=== PATIENT | female | born 1960 | race Caucasian/White ===

== ENCOUNTER 2020-04-13 07:59 | Emergency (ER) | payer BC, SELFPAY ==
--- NOTE | 2020-04-13 08:22 | ED.GENADULT ---
HPI - General Adult General Chief complaint: General Medical <Esdras Abdi NP - Last Filed: 04/13/20 16:45> Stated complaint: COVID TESTING [phone] <Esdras Abdi NP - Last Filed: 04/13/20 16:45> Time Seen by Provider: 04/13/20 08:21 <Esdras Abdi NP - Last Filed: 04/13/20 16:45> Source: patient <Esdras Abdi NP - Last Filed: 04/13/20 16:45> Mode of arrival: ambulatory <Esdras Abdi NP - Last Filed: 04/13/20 16:45> Limitations: no limitations <Esdras Abdi NP - Last Filed: 04/13/20 16:45> History of Present Illness HPI narrative: States she has some chills and body aches she works as a wood machinist and does have grand kids requesting COVID-19 test. <Esdras Abdi NP - Last Filed: 04/13/20 16:45> Onset (ago): day(s) <Esdras Abdi NP - Last Filed: 04/13/20 16:45> Related Data Allergies/adverse reactions: Allergies Allergy/AdvReac Type Severity Reaction Status Date / Time eggplant [EGGPLANT] Allergy Mild HIVES Unverified 03/28/20 16:29 acetaminophen [From PERCOCET] AdvReac Mild NAUSEA & Unverified 03/28/20 16:29 VOMITING oxycodone [From PERCOCET] AdvReac Mild NAUSEA & Unverified 03/28/20 16:29 VOMITING <Esdras Abdi NP - Last Filed: 04/13/20 16:45> Review of Systems Review of Systems: Constitutional: No Weight loss, No Fever, + Chills, No Night Sweats, No Fatigue, No Malaise ENT/Mouth: No Hearing loss, No Ear Pain, No Nasal Congestion, No Sinus Pain, No Hoarseness, No sore throat, No Rhinorrhea, No Swallowing Difficulty Eyes: No Eye Pain, No Swelling, No Redness, No Foreign Body, No Discharge, No Vision Changes Cardiovascular: No Chest Pain, No SOB, No Dyspnea on Exertion, No Orthopnea, No Edema, No Palpitations Respiratory: No Cough, No Sputum, No Wheezing, No Smoke Exposure, No Dyspnea Gastrointestinal: No Nausea, No Vomiting, No Diarrhea, No Constipation, No abdominal Pain, No Hematochezia, No Melena Genitourinary: no irregular bleeding, No Dysuria, No Urinary Frequency, No Hematuria, No Urinary Incontinence, No Urgency, No Flank Pain, No Urinary Flow Changes, No Hesitancy Musculoskeletal: No joint pain, No Myalgias, No Joint Swelling Skin: No Skin Lesions, No rash Neuro: No Weakness, No Numbness, No Paresthesias, No Loss of Consciousness, No Dizziness, No Headache Psych: No Anxiety/Panic, No Depression, No SI/HI/AH/VH, No Social Issues, Heme/Lymph: No Bruising, No Bleeding,No Lymphadenopathy Endocrine: No Polyuria, No Polydipsia, No Temperature Intolerance m <Esdras Abdi NP - Last Filed: 04/13/20 16:45> [facility] Past Medical History Medical History: Medical History No known health problems <Esdras Abdi NP - Last Filed: 04/13/20 16:45> Social History Social History: Social History Alcohol intake: never Smoked in Last 30 Days: No Use of substances other than those prescribed or required for medical reasons: No Advance Directives: No Advance Directives Information Provided: No <Esdras Abdi NP - Last Filed: 04/13/20 16:45> Physical Exam Vital Signs and I&O and Narrative: Vital Signs and I&O: Vital Signs Temp 98.2 F 04/13/20 08:53 Pulse 66 04/13/20 08:53 Resp 16 04/13/20 08:53 BP 147/86 H 04/13/20 08:53 Pulse Ox 99 04/13/20 08:53 Intake & Output 04/13/20 04/13/20 04/14/20 06:59 18:59 06:59 Weight 77.111 kg Body Mass Index 30.1 <Esdras Abdi NP - Last Filed: 04/13/20 16:45> Vital Signs and I&O: Vital Signs Temp 98.2 F 04/13/20 08:53 Pulse 66 04/13/20 08:53 Resp 16 04/13/20 08:53 BP 147/86 H 04/13/20 08:53 Pulse Ox 99 04/13/20 08:53 Intake & Output 04/13/20 04/13/20 04/14/20 06:59 18:59 06:59 Weight 77.111 kg Body Mass Index 30.1 <Alfredo Cruz DO - Last Filed: 04/13/20 22:17> Const: General: cooperative and healthy appearing; No acute distress or intoxicated appearing <[facility] [employer] TECHNICIAN - Last Filed: 04/13/20 16:45> Nutritional Appearance: average body habitus [facility] Last [facility]: 04/13/20 16:45> Orientation/consciousness: patient oriented x3 [facility] Last Filed: 04/13/20 16:45> HENMT: Head: Yes normal to inspection <[facility] - Last Filed: 04/13/20 16:45> Ears: hearing grossly normal bilaterally [facility] Last Filed: 04/13/20 16:45> Eyes: General: appearance normal, both eyes and all related structures <[facility] - Last Filed: 04/13/20 16:45> Visual Renee: normal visual renee by confrontation <[facility] - Last Filed: 04/13/20 16:45> Neck: Neck: Yes normal visual inspection, No positive Brudzinski's sign, No positive Kernig's sign and No tender <[facility] [employer] TECHNICIAN - Last Filed: 04/13/20 16:45> Thyroid: Thyroid normal <[facility] [employer] TECHNICIAN - Last Filed: 04/13/20 16:45> Chest: Chest palpation & inspection: normal inspection of the chest <[facility] DANNIELLE Abdi - Last Filed: 04/13/20 16:45> Resp: Effort & Inspection: normal respiratory effort <[facility] DANNIELLE Abdi - Last Filed: 04/13/20 16:45> Cardio: Jugular venous distension: no JVD <[facility] [employer] TECHNICIAN - Last Filed: 04/13/20 16:45> GI: Inspection: Yes normal to inspection <[facility] DANNIELLE Abdi - Last Filed: 04/13/20 16:45> Percussion: Yes normal to percussion <Esdras Abdi NP - Last Filed: 04/13/20 16:45> Auscultation: normal bowel sounds <Esdras Abdi NP - Last Filed: 04/13/20 16:45> : General: Yes no CVA tenderness <Esdras Abdi [employer] TECHNICIAN - Last Filed: 04/13/20 16:45> Back/Spine/Pelvis: Back: no CVA tenderness <[facility] [employer] TECHNICIAN - Last Filed: 04/13/20 16:45> Skin: General skin exam: no rashes or lesions noted <[facility] [employer] TECHNICIAN - Last Filed: 04/13/20 16:45> Neuro: General: patient oriented x3 <[facility] [employer] TECHNICIAN - Last Filed: 04/13/20 16:45> Extrem: General: Yes normal to inspection <[facility] [employer] TECHNICIAN - Last Filed: 04/13/20 16:45> Course Course Hospital Course: COVID-19 test done will discharge with precautions. [facility] guidance provided. Advised to follow institutional guidance. <Esdras Abdi [employer] TECHNICIAN - Last Filed: 04/13/20 16:45> Discharge Plan Discharge Clinical Impression: Acute viral syndrome <Esdras Abdi NP - Last Filed: 04/13/20 16:45> Patient Disposition: Home, Self-Care <Esdras Abdi NP - Last Filed: 04/13/20 16:45> Instructions: Viral Syndrome (ED) <Esdras Abdi NP - Last Filed: 04/13/20 16:45> Additional Instructions: Based on your symptoms and history we have sent a COVID-19. Although your RESULT IS PENDING at this time. RESULTS should return within 72 hours. At this time you will be contacted with either NEGATIVE OR POSITIVE results. -Please wait until we contact you for your results. At this time you will be okay for discharge. Please plan for self quarantine for up to 14 days. Do not expose yourself to others. You may not go to work. If testing does come back negative you may return to activities as long as you are no longer having any symptoms for at least 3 days. Please continue to follow cold instructions and wash your hands frequently. You may take Tylenol as directed on the bottle for pain or fever. Patient seen in the emergency department on 01/05/2020 and should be excused from work until negative test results AND until 72 hours without any symptoms AND at least 10 days have passed since symptoms first appeared or since last exposure to COVID-19 positive patient CDC Guidelines for home isolation: - Stay away from others - WEAR A MASK if you are sick AND STAY HOME - Cover your mouth and nose with a tissue when you cough or sneeze. Dispose of tissues in a lined trash can and wash your hands immediately with soap and water for at least 20 seconds. If soap and water are not available, clean hands with alcohol-based hand backer up that contains at least 60% alcohol. - Clean your hands often with soap and water for at least 20 seconds - Avoid touching your eyes, nose and mouth with unwashed hands - Do not share dishes, drinking glasses, cups, eating utensils, towels, or bedding with other people in your home. After using these items, wash them thoroughly with soap and water or put in the director community health nursing. - Clean high-touch surfaces in your isolation area ( sick room and bathroom) every day; let a caregiver clean and disinfect high-touch surfaces in other areas of the home. Clean the area or item with soap and water or another detergent if it is dirty. Then, use a household disinfectant. - Limit contact with pets and animals: If you must care for a pet, wash your hands before and after interacting with them <Esdras Abdi NP - Last Filed: 04/13/20 16:45> Interventions: ED Discharge Assessment Last Done: 04/13/20 09:00 <Esdras Abdi NP - Last Filed: 04/13/20 16:45> Discharge Date/Time: 04/13/20 09:01 <Esdras Abdi NP - Last Filed: 04/13/20 16:45>
[2020-04-13 08:53] VITALS: BP 147/86; PULSE 66; RESP 16; TEMP 36.8; O2SAT 99; BMI 30.1
== END 2020-04-13 09:01 | disposition home or self-care (01) ==
LOC: HO.ED 08:36
PROVIDERS: Nurse Practitioner Primary Care; Emergency Provider Emergency Medicine; PCP Internal Medicine
DX: B34.9 Viral infection, unspecified (principal); Z20.828 Contact with and (suspected) exposure to other viral communicable diseases; R68.83 Chills (without fever)
CPT/HCPCS: 36415; 87635; 99283

== ENCOUNTER 2020-07-26 02:15 | Emergency (ER) | payer BC, SELFPAY ==
--- NOTE | 2020-07-26 02:23 | ECG_ITS ---
Test Reason : PALPITATIONS Blood Pressure : / mmHG Vent. Rate : 077 BPM Atrial Rate : 077 BPM P-R Int : 158 ms QRS Dur : 078 ms QT Int : 402 ms P-R-T Axes : 052 013 021 degrees QTc Int : 454 ms Normal sinus rhythm Normal ECG When compared to the previous EKG of No significant changes seen Referred By: Malini Arroyo Electronically Signed By:EFREM LR MD
[2020-07-26 02:33] VITALS: BP 159/84; PULSE 78; RESP 12; TEMP 37.2; O2SAT 99; BMI 30.1
[2020-07-26 03:06] LABS: MANUAL DIFF FLAG NO
[2020-07-26 03:07] LABS: Basophils Absolute Auto 0.1 X10*3/uL (0.0-0.2); Basophils Percent Auto 0.7 % (0-2); Eosinophils Absolute Auto 0.2 X10*3/uL (0.0-0.4); Eosinophils Percent Auto 3.6 % (0-4); Hematocrit 40.7 % (37-47); Hemoglobin 13.5 g/dl (12.0-16.0); Imm Gran Abs Auto 0.06 X10*3/uL (0.00-0.03); Imm Gran Pct Auto 0.9 % (0.0-0.4); Lymphocytes Absolute Auto 2.3 X10*3/uL (1.2-4.9); Lymphocytes Percent Auto 33.9 % (20-40); Mean Corpuscular HGB Conc 33.2 g/dl (31.0-35.0); Mean Corpuscular Hemoglobin 29.3 pg (27.0-33.0); Mean Corpuscular Volume 88.5 fL (80-98); Mean Platelet Volume 9.6 fL (9.4-12.3); Monocytes Absolute Auto 0.5 X10*3/uL (0.1-1.2); Monocytes Percent Auto 7.8 % (2-11); Neutrophils Absolute Auto 3.5 X10*3/uL (2.0-8.3); Neutrophils Percent Auto 53.1 % (45-73); Platelet Count 230 X10*3/uL (160-400); Red Cell Distribution Width 12.8 % (11.0-16.0); White Blood Count 6.7 X10*3/uL (4.8-10.8)
--- NOTE | 2020-07-26 03:32 | ED.ARRPALP ---
HPI - Arrhythmia/Palpitations General Chief Complaint: Arrhythmia/Palpitations Stated Complaint: PALPITATIONS Time Seen by Provider: 07/26/20 02:22 Source: patient Mode of arrival: ambulatory History of Present Illness HPI narrative: This is a 59-year-old female who states that she woke up from sleep and stated that her heart was racing, she took her heart rate and noted that it was 98. She states that she has been having these palpitation feelings for the past week and that on average they last approximately 1 hour and are not associated with chest pain but she starts feeling short of breath and anxious and states that she does suffer from anxiety. Otherwise, she denies any fevers, chills, GI symptoms, symptoms and states that all of her symptoms have resolved EN route to the hospital. Related Data Allergies Allergy/AdvReac Type Severity Reaction Status Date / Time eggplant [EGGPLANT] Allergy Mild HIVES Verified 07/26/20 02:39 acetaminophen [From PERCOCET] AdvReac Mild NAUSEA & Verified 07/26/20 02:39 VOMITING oxycodone [From PERCOCET] AdvReac Mild NAUSEA & Verified 07/26/20 02:39 VOMITING Review of Systems Review of Systems: Pertinent positives and negatives as stated in HPI 10 point review systems otherwise negative. PMFSH Past Medical History Source: nursing notes reviewed Medical History No known health problems Social History Social History Alcohol intake: never Smoking Status: Never smoker Use of substances other than those prescribed or required for medical reasons: No Advance Directives: No Physical Exam Vital Signs: Vital Signs: Last Vital Signs Temp 98.9 F 07/26/20 02:33 Pulse 78 07/26/20 02:33 Resp 12 07/26/20 02:33 BP 159/84 H 07/26/20 02:33 Pulse Ox 99 07/26/20 02:33 Body Mass Index 30.1 VITAL SIGNS: Reviewed. GENERAL: Well developed, well nourished, in no acute distress. NOSE: Nares patent bilateral OROPHARYNX: no oral lesions noted, posterior pharynx clear and non-erythematous without noted tonsillar enlargement/erythema/exudates NECK: Supple, no adenopathy LUNGS: Normal breath sounds. No adventitious sounds or accessory muscle use. SpO2<99> CARDIOVASCULAR: Regular rate and rhythm without noted murmurs, no JVD or lower extremity edema. ABDOMEN: Soft, non-tender, non-distended with bowel sounds. No rigidity. No guarding. No palpable masses or hernias noted MUSCULOSKELETAL: No tenderness, deformities, or effusions noted on gross inspection. EXTREMITIES: No cyanosis, clubbing or edema. SKIN: Inspection of the skin reveals no rashes NEUROLOGIC: Alert and oriented x 4. Course Course Course Narrative: This is a 59-year-old female with history and clinical presentation consistent with anxiety associated palpitations, but will rule out infectious/anemia/thyroid etiologies. All investigations were reviewed and there are no acute findings to suggest that infection, anemia, thyroid is contributing to patient's symptoms. In addition, there are no acute changes on EKG. All results and findings were discussed with the patient at bedside and she was strongly encouraged to follow-up with her primary care provider and discuss a possible Cardiology referral as appropriate. MDM - Arrhythmia/Palpitations Lab Data Result diagrams: 07/26/20 03:01 07/26/20 03:00 Labs: Lab Results 07/26/20 07/26/20 07/26/20 Range/Units 03:00 03:00 03:01 WBC 6.7 (4.8-10.8) X10*3/uL RBC 4.60 (4.20-5.50) X10*6/uL Hgb 13.5 (12.0-16.0) g/dl Hct 40.7 (37-47) % MCV 88.5 (80-98) fL MCH 29.3 (27.0-33.0) pg MCHC 33.2 (31.0-35.0) g/dl RDW 12.8 (11.0-16.0) % Plt Count 230 (160-400) X10*3/uL MPV 9.6 (9.4-12.3) fL Immature Gran % (Auto) 0.9 H (0.0-0.4) % Neut % (Auto) 53.1 (45-73) % Lymph % (Auto) 33.9 (20-40) % [place] % (Auto) 7.8 (2-11) % Eos % (Auto) 3.6 (0-4) % Baso % (Auto) 0.7 (0-2) % Lymph # (Auto) 2.3 (1.2-4.9) X10*3/uL [place] # (Auto) 0.5 (0.1-1.2) X10*3/uL Eos # (Auto) 0.2 (0.0-0.4) X10*3/uL Baso # (Auto) 0.1 (0.0-0.2) X10*3/uL Abs Immat Gran (auto) 0.06 H (0.00-0.03) X10*3/uL Absolute Neuts (auto) 3.5 (2.0-8.3) X10*3/uL Absolute Nucleated RBC 0.000 (0.0-0.012) X10*3/uL Nucleated RBC % (auto) 0.0 (0.0-0.2) /100WBC Sodium 141 (135-145) mmol/L Potassium 4.2 (3.3-5.1) mmol/l Chloride 107 (96-108) mmol/L Carbon Dioxide 26 (22-29) mmol/L Anion Gap 12 (12-20) BUN 23 H (9-16) mg/dL Creatinine 0.74 (0.5-1.4) mg/dL Estim Creat Clear Calc 78.5 Estimated GFR > 60 Random Glucose 108 (60-115) mg/dL Calcium 8.3 L (8.4-10.2) mg/dL Total Bilirubin 0.3 (0.0-1.0) mg/dL AST 13 (5-31) U/L ALT 11 (0-31) U/L Alkaline Phosphatase 102 (39-117) U/L Total Protein 5.9 L (6.5-8.0) g/dL Albumin 3.7 (3.5-5.0) g/dL TSH 3.81 (0.32-4.0) mIU/mL Urine Color Urine Appearance Urine pH (5.0-8.0) Ur Specific [place] (1.005-1.025) Urine Protein (NEG-TRACE) MG/DL Urine Glucose (UA) (NEG) MG/DL Urine Ketones (NEG) MG/DL Urine Blood (NEG) Urine Nitrite (NEG) Ur Leukocyte Esterase (NEG) 01/15/21 Range/Units 03:36 WBC (4.8-10.8) X10*3/uL RBC (4.20-5.50) X10*6/uL Hgb (12.0-16.0) g/dl Hct (37-47) % MCV (80-98) fL MCH (27.0-33.0) pg MCHC (31.0-35.0) g/dl RDW (11.0-16.0) % Plt Count (160-400) X10*3/uL MPV (9.4-12.3) fL Immature Gran % (Auto) (0.0-0.4) % Neut % (Auto) (45-73) % Lymph % (Auto) (20-40) % [place] % (Auto) (2-11) % Eos % (Auto) (0-4) % Baso % (Auto) (0-2) % Lymph # (Auto) (1.2-4.9) X10*3/uL [place] # (Auto) (0.1-1.2) X10*3/uL Eos # (Auto) (0.0-0.4) X10*3/uL Baso # (Auto) (0.0-0.2) X10*3/uL Abs Immat Gran (auto) (0.00-0.03) X10*3/uL Absolute Neuts (auto) (2.0-8.3) X10*3/uL Absolute Nucleated RBC (0.0-0.012) X10*3/uL Nucleated RBC % (auto) (0.0-0.2) /100WBC Sodium (135-145) mmol/L Potassium (3.3-5.1) mmol/l Chloride (96-108) mmol/L Carbon Dioxide (22-29) mmol/L Anion Gap (12-20) BUN (9-16) mg/dL Creatinine (0.5-1.4) mg/dL Estim Creat Clear Calc Estimated GFR Random Glucose (60-115) mg/dL Calcium (8.4-10.2) mg/dL Total Bilirubin (0.0-1.0) mg/dL AST (5-31) U/L ALT (0-31) U/L Alkaline Phosphatase (39-117) U/L Total Protein (6.5-8.0) g/dL Albumin (3.5-5.0) g/dL TSH (0.32-4.0) mIU/mL Urine Color YELLOW Urine Appearance CLEAR Urine pH 6.0 (5.0-8.0) Ur Specific [place] 1.025 (1.005-1.025) Urine Protein NEG (NEG-TRACE) MG/DL Urine Glucose (UA) NEG (NEG) MG/DL Urine Ketones NEG (NEG) MG/DL Urine Blood NEG (NEG) Urine Nitrite NEG (NEG) Ur Leukocyte Esterase NEG (NEG) ECG Data Interpretation: Normal sinus rhythm, HR-77, no evidence of acute ischemia, PA/QRS/QTC are within normal limits. Discharge Plan Discharge Clinical Impression: Palpitations, Anxiety Patient Disposition: Home, Self-Care Instructions: Heart Palpitations (ED), Anxiety (ED) Additional Instructions: 1. Resume all home medications as prescribed. 2. Please follow-up with your primary care provider to discuss the possibility of further evaluation of your palpitations with Cardiology. Please do not hesitate to return to the emergency department should you experience any worsening of your symptoms. Referrals: aKhlil Sharpe MD [Primary Care Provider] - 2 days (Re-evaluation outpatient management of palpitations with possible cardiology referral.)
[2020-07-26 03:41] LABS: Alanine Aminotransferase 11 U/L (0-31); Albumin Level 3.7 g/dL (3.5-5.0); Alkaline Phosphatase 102 U/L (39-117); Anion Gap 12 (12-20); Aspartate Amino Transferase 13 U/L (5-31); Bilirubin Total 0.3 mg/dL (0.0-1.0); Blood Urea Nitrogen 23 mg/dL (9-16); Calcium 8.3 mg/dL (8.4-10.2); Carbon Dioxide 26 mmol/L (22-29); Chloride 107 mmol/L (96-108); Creatinine Clr Calc Pharmacy 78.5; Estimated Glomerular Filt Rate > 60; Glucose Random 108 mg/dL (60-115); Potassium 4.2 mmol/l (3.3-5.1); Sodium 141 mmol/L (135-145); Total Protein 5.9 g/dL (6.5-8.0)
[2020-07-26 03:52] LABS: Glucose Urine UA NEG (NEG); Leukocyte Esterase Urine NEG (NEG); Nitrite Urine NEG (NEG); Specific Gravity - Urine 1.025 (1.005-1.025); Urine Blood NEG (NEG); Urine Ketones NEG (NEG); Urine Protein NEG (NEG-TRACE)
[2020-07-26 03:54] LABS: Color Urine YELLOW; UACC Culture Trigger NO
[2020-07-26 03:55] LABS: Appearance Urine CLEAR
[2020-07-26 03:55] LABS: TSH reflex Free T4 3.81 mIU/mL (0.32-4.0)
== END 2020-07-26 04:50 | disposition home or self-care (01) ==
PROVIDERS: Emergency Provider Student in an Organized Health Care Education/Training Program; PCP Internal Medicine
DX: R00.2 Palpitations (principal); F41.9 Anxiety disorder, unspecified
CPT/HCPCS: 36415; 80053; 81003; 84443; 85025; 93005; 99283; 99284

== ENCOUNTER 2020-09-27 12:30 | Emergency (ER) | payer BC, SELFPAY ==
--- NOTE | ~2020-09-27 | XR_ITS ---
EXAMINATION: XR CHEST CLINICAL INFORMATION: Headache and elevated blood pressure. COMPARISON: None TECHNIQUE: Frontal view of the chest was obtained. FINDINGS: No significant abnormality is noted involving the heart, lungs, mediastinum, bony thorax or soft tissues. XR/XR chest 1V IMPRESSION: Unremarkable chest examination.
--- NOTE | ~2020-09-27 | CT_ITS ---
EXAMINATION: CT ABDOMEN AND PELVIS WITHOUT CONTRAST CLINICAL INFORMATION: Intermittent left flank pain COMPARISON: None TECHNIQUE: Multidetector volumetric imaging was performed from the superior aspect of the liver through the pubic symphysis. Sagittal and coronal reformatted images were obtained on the technologist's workstation. This CT examination was performed using dose optimization techniques as appropriate, variously including the following: *Automated exposure control *Adjustment of mA and/or kV according to patient size (this includes techniques or standardized protocols for targeted exams where dose is matched to indication/reason for exam; i.e. extremities or head) *Use of iterative reconstruction technique DLP: 757 mGy-cm FINDINGS: LUNG BASES: The visualized lung bases are unremarkable. LIVER, GALLBLADDER, AND BILIARY TREE: The liver is normal in size, shape, and attenuation. No focal hepatic lesion or biliary ductal dilatation is present. The gallbladder is unremarkable with no evidence of radiopaque gallstones, gallbladder wall thickening, or obvious pericholecystic inflammatory changes. PANCREAS: Unremarkable. SPLEEN: Unremarkable. ADRENAL GLANDS: Unremarkable. KIDNEYS AND URETERS: The kidneys are normal in size, shape, and attenuation. Multiple cystic structures are present in the region of the renal pelvis, left significantly greater than the right. I suspect that these represent parapelvic cysts. No hydronephrosis, hydroureter, or calculi seen. No perinephric stranding. BLADDER: The bladder is nearly empty and demonstrates symmetric wall thickening. No calculi are seen. GASTROINTESTINAL TRACT: The small and large bowel are unremarkable. The appendix is unremarkable. ABDOMINAL WALL: No significant hernia is appreciated. LYMPH NODES: Normal. VASCULAR: Unremarkable. PELVIC VISCERA: Status post hysterectomy. An abnormal adnexal mass or free intraperitoneal fluid is not seen. OSSEOUS STRUCTURES: Unremarkable. Mild degenerative changes present in the lower thoracic spine. CT/CT abdomen pelvis wo con IMPRESSION: Probable bilateral parapelvic cysts. Left greater than right. This could be confirmed with CT urography, especially the patient continues to have continued left flank pain..
--- NOTE | ~2020-09-27 | CT_ITS ---
EXAMINATION: CT HEAD WITHOUT CONTRAST CLINICAL INFORMATION: Headache and elevated blood pressure. COMPARISON: None TECHNIQUE: Contiguous axial imaging was performed from the skull base to vertex without intravenous administration of contrast. This CT examination was performed using dose optimization techniques as appropriate, variously including the following: *Automated exposure control *Adjustment of mA and/or kV according to patient size (this includes techniques or standardized protocols for targeted exams where dose is matched to indication/reason for exam; i.e. extremities or head) *Use of iterative reconstruction technique DLP: 714 mGy-cm FINDINGS: There is no evidence of acute intracranial hemorrhage or territorial infarction. No abnormal mass effect or midline shift is seen. [place] to white matter differentiation is well preserved. No extra-axial fluid collections are identified. The ventricles are normal in size. There is no abnormal attenuation within the brain parenchyma. The osseous structures and soft tissues are normal. There is mild mucoperiosteal thickening involving bilateral maxillary sinuses. Mild degenerative changes right TM joints are noted. CT/CT head/brain wo con IMPRESSION: No acute intracranial process seen Chronic bilateral maxillary sinus inflammatory changes. Mild right TM joint arthritis.
[2020-09-27 12:42] VITALS: BP 181/92; PULSE 76; RESP 16; TEMP 36.1; O2SAT 100; BMI 31.5
[2020-09-27 14:51] LABS: COVID-19 Test Negative (Negative)
[2020-09-27 14:57] VITALS: BP 172/85; PULSE 80; RESP 16; O2SAT 98
--- NOTE | 2020-09-27 14:58 | PC.NURSE ---
BP remains elevated. Awaiting MD. COVID swab negative.
--- NOTE | 2020-09-27 15:13 | ECG_ITS ---
Test Reason : HEADACHE Blood Pressure : / mmHG Vent. Rate : 070 BPM Atrial Rate : 070 BPM P-R Int : 154 ms QRS Dur : 080 ms QT Int : 410 ms P-R-T Axes : 060 020 028 degrees QTc Int : 442 ms Normal sinus rhythm Normal ECG When compared with ECG of 26-JUL-2020 02:46, No significant change was found Referred By: Wendy Dawkins Electronically Signed By:EFREM LR MD
[2020-09-27 15:45] LABS: MANUAL DIFF FLAG NO
[2020-09-27] MEDS: 0.9 % Sodium Chloride 1,000 ML 999 ML IVCONT (15:46)
[2020-09-27 15:47] LABS: Basophils Absolute Auto 0.1 X10*3/uL (0.0-0.2); Basophils Percent Auto 0.6 % (0-2); Eosinophils Absolute Auto 0.1 X10*3/uL (0.0-0.4); Eosinophils Percent Auto 1.1 % (0-4); Hematocrit 46.5 % (37-47); Hemoglobin 15.6 g/dl (12.0-16.0); Imm Gran Abs Auto 0.04 X10*3/uL (0.00-0.03); Imm Gran Pct Auto 0.5 % (0.0-0.4); Lymphocytes Absolute Auto 1.4 X10*3/uL (1.2-4.9); Lymphocytes Percent Auto 15.6 % (20-40); Mean Corpuscular HGB Conc 33.5 g/dl (31.0-35.0); Mean Corpuscular Hemoglobin 29.3 pg (27.0-33.0); Mean Corpuscular Volume 87.2 fL (80-98); Mean Platelet Volume 9.6 fL (9.4-12.3); Monocytes Absolute Auto 0.4 X10*3/uL (0.1-1.2); Monocytes Percent Auto 4.6 % (2-11); Neutrophils Absolute Auto 6.8 X10*3/uL (2.0-8.3); Neutrophils Percent Auto 77.6 % (45-73); Platelet Count 249 X10*3/uL (160-400); Red Blood Count 5.33 X10*6/uL (4.20-5.50); White Blood Count 8.7 X10*3/uL (4.8-10.8)
[2020-09-27 15:53] LABS: Prothrombin Time 11.7 SEC (10.8-13.0)
[2020-09-27 15:55] LABS: Partial Thromboplastin Time 37.4 SEC (24.1-38.0)
[2020-09-27 16:00] VITALS: BP 164/87; PULSE 70; RESP 16; TEMP 36.6; O2SAT 99
[2020-09-27 16:09] LABS: Alanine Aminotransferase 11 U/L (0-31); Albumin Level 4.4 g/dL (3.5-5.0); Alkaline Phosphatase 112 U/L (39-117); Anion Gap 13 (12-20); Aspartate Amino Transferase 17 U/L (5-31); Bilirubin Direct 0.2 mg/dL (0.0-0.5); Bilirubin Total 0.6 mg/dL (0.0-1.0); Blood Urea Nitrogen 17 mg/dL (9-16); C Reactive Protein 0.31 mg/dL (< or = 0.50); Calcium 9.1 mg/dL (8.4-10.2); Carbon Dioxide 27 mmol/L (22-29); Chloride 105 mmol/L (96-108); Creatinine Clr Calc Pharmacy 78.3; Estimated Glomerular Filt Rate > 60; Glucose Random 98 mg/dL (60-115); Magnesium 2.1 mg/dL (1.6-2.6); Potassium 3.7 mmol/L (3.3-5.1); Sodium 141 mmol/L (135-145); Total Protein 6.9 g/dL (6.5-8.0)
[2020-09-27 16:13] LABS: B Type Natriuretic Peptide 29 pg/mL (<100); Troponin-I High Sensitivity 4.2 ng/L (<3.5-17.0)
--- NOTE | 2020-09-27 16:13 | ED_ITS ---
HPI - Headache General Chief Complaint: Headache Stated Complaint: headache, hbp Time Seen by Provider: 09/27/20 14:56 Source: patient Mode of arrival: ambulatory Limitations: no limitations History of Present Illness HPI Narrative: 60-year-old female with a past medical history of vertigo, anxiety, depression chronic neck pain that radiates from the back of her neck and causes her to have headaches who reports she does not have a past medical history of hypertension although in our system it reports that she does therefore unsure about this presenting to the ED with complaints of headache with elevated blood pressure at the frontal/temporal aspects of her head that has been intermittent over the past few years/months and feels similar to her prior headaches that arise from her chronic back pain. Reports that the headache completely resolved prior to arrival although returned when she arrived back at the emergency department. Reports that she was initially seen at an urgent care center prior to arrival for a COVID test due to she wanted to have acupuncture and therefore they requested and negative COVID test. Patient also reports for the past few days she has been having right-sided flank pain. She reports she is currently on antibiotics for an ingrown toenail she believes Keflex. She denies any dizziness, changes in vision, nasal congestion/runny nose, ear pain, nausea/vomiting, jaw pain, paresthesias, chest pain, shortness of breath, palpitations, cough, lower extremity edema, any symptoms, any back pain or any other symptoms complaints or concerns at this time. MD elicited complaint: headache Onset description: gradually Location: frontal and temporal Severity: moderate Quality & Timing: aching Exacerbating factors: none Relieving factors: nothing Context: other (Patient cannot recall) Associated symptoms: none Treatments prior to arrival: none Related Data Previous Rx's Medication Instructions Recorded levofloxacin 750 mg PO DAILY 7 Days #7 tab 09/27/20 lisinopril 10 mg PO DAILY #30 tab 09/27/20 Allergies Allergy/AdvReac Type Severity Reaction Status Date / Time eggplant [EGGPLANT] Allergy Mild HIVES Verified 07/26/20 02:39 oxycodone [From PERCOCET] AdvReac Mild NAUSEA & Verified 07/26/20 02:39 VOMITING Review of Systems Review of Systems: Constitutional : No changes in activity, No lethargy, No recent prior head injury, No agitation, No increased fussiness ENT/Mouth : No Ear Pain, No Nasal discharge/drainage Eyes: No Eye Pain, No Swelling, No Redness, No Foreign Body, No Vision Changes Cardiovascular : No Chest Pain, No SOB Respiratory : No Cough Gastrointestinal : No Nausea, No Vomiting, + abdominal Pain Genitourinary : No Dysuria, No Urinary Frequency, No Urinary Incontinence, No Urgency, No Flank Pain Musculoskeletal : No joint pain, No neck stiffness, No back pain/injury Skin : No lacerations Neuro : + Headache, No unsteady gait, No Paresthesias, No Loss of Consciousness, No altered mental status, No dizziness Denies past medical history of HIV, recent trauma, coagulopathy, recent spinal/ epidural procedure, new medication, URI symptoms, close contacts with similar symptoms, tick bite, or known CO2 exposure. Yes all other systems are reviewed and are negative [facility] Past Medical History Attestation statement: The following information was validated with the patient. Social History Social History Alcohol intake: never Smoking Status: Never smoker Use of substances other than those prescribed or required for medical reasons: No Advance Directives: Yes Advance Directives Information Provided: Yes Advance Directives on File: No Physical Exam Vital Signs: Vital Signs: Last Vital Signs Temp 97.8 F 09/27/20 16:00 Pulse 70 09/27/20 16:00 Resp 16 09/27/20 16:00 BP 164/87 H 09/27/20 16:00 Pulse Ox 99 09/27/20 16:00 Body Mass Index 31.5 Vital signs have been reviewed as normal and appeared to be correct. Blood pressure hypertensive at 181/92. Heart rate normal. Respiration rate normal. Temperature normal. Oxygen saturation normal. Appearance: Alert. Oriented X3. No acute distress. Head: Normal external exam. Normocephalic. Atraumatic. Able to rotate head bilaterally. Eyes: PERRLA. EOMI. No nystagmus noted. Conjunctiva and sclera normal. Eyelids normal. Corneal reflex normal. ENT: Hearing normal. Pharynx normal. Uvula midline. tongue midline. Moist mucous membranes. No trismus noted. No drooling noted. No muffled voice noted. Neck: Normal inspection. Neck supple. FROM. No adenopathy. Thyroid Normal. No meningeal signs. No neck mass noted. CVS: Normal heart rate and rhythm. Heart sound normal. No murmurs noted. Pulses normal throughout. Respiratory: No respiratory distress. Painless inspiration. Breath sounds normal. No wheezes/rales/rhonchi noted. Chest nontender. No accessory muscle usage noted or decreased air movement noted. Abdomen: Soft and mild tender to palpation diffusely. Nondistended. No guarding. No rigidity. Bowel sounds normal in all 4 quadrants. No distention noted. No organomegaly noted. No visible injury noted. No rebound tenderness. Negative Rovsing sign. Negative obturator's sign. Negative psoas sign. Negative Suazo sign. Back: Full range of motion noted. Skin: Skin warm and dry. Normal skin color. Normal skin turgor. No rashes/lesions/lacerations noted. Extremities: Extremities exhibit normal range of motion. Extremities nontender. Able to shrug shoulders bilaterally and keep up against resistance. Neuro: Oriented X 3. No motor deficit. No sensory deficit. Reflexes normal. Moving all extremities. No focal motor deficits. Cranial nerves II-XI intact bilaterally. Facial strength normal. Normal cognition. Speech normal. Gait normal. Strength 5/5 throughout. No pronator drift. No tremor noted. No fas ciculations noted. Muscle tone normal throughout. No asterixis noted. Phnbkl-ea-rnee test normal. Heel to che test normal. Tandem gait normal. Does not sway with eyes open. Romberg test negative. Rapid alternating movement upper extremity normal. Rapid alternating movement lower extremity normal. Hand drop from overhead-Mrs. face. No rigidity noted. NIHSS score 0. NIH Stroke Scale Internal: Initial- Upon Arrival Time: 15:15 Level of Consciousness: Alert Level of Consciousness Questions: Answers both questions correctly Level of Consciousness Commands: Performs both tasks correctly Best Gaze: Normal Visual: No visual loss Facial Palsy: Normal Motor Arm (Right): No drift Motor Arm (Left): No drift Motor Leg (Right): No drift Motor Leg (Left): No drift Limb Ataxia: Absent Sensory: Normal Best Language: No aphasia Dysarthia: Normal Extinction and Inattention: No abnormality Score: 0 Course Course Course Narrative: 15:15pm - 60-year-old female with a past medical history of vertigo, anxiety, depression, chronic neck pain that radiates from the back of her neck and causes her to have headaches presenting to the ED with complaints of frontal/temporal headache with elevated blood pressure that was noted at an urgent care prior to arrival therefore she was sent here reports persistent headache. + abd pain. - on exam patient is alert and oriented x3. Not in any acute distress. Hypertensive at 181/92 otherwise all other vitals are within normal limits. No focal neuro deficits noted. NIHSS score 0. No tpa indicated at nondisabling symptoms. Lungs CTA. CV RRR. - Concern for CVA vs hypertensive headache - Plan: Labs, CT scan of brain, CXR, CT scan of abd/pelvis without IV contrast. Provide symptomatic treatment for the patient's headache and re-evaluate. Reevaluation(s) Reevaluation #1: - all labs within normal limits including troponin. COVID/RSV/flu negative. - UA with white blood cells therefore patient will most likely a UTI therefore will place on antibiotics. - CT scan of brain and CT scan of abdomen pelvis revealed chronic changes at patient already knew about including the parapelvic cyst and the sinusitis and TMJ arthritis although I printed out a copy given to the patient. - chest x-ray within normal limits no acute processes noted. - EKG normal sinus rhythm no acute ischemic changes noted. - patient reported that she does believe she had a history of hypertension although she was placed on some type of hypertensive medication and it made her blood pressure dropped and cause her dizziness therefore they discontinue her off of the blood pressure medication although she does not remember the name. - therefore I have restarted the patient on 10 mg of lisinopril while here in the emergency department. And repeat blood pressure at this time is 160/99. Patient also reports resolution of her headache after the Tylenol. - will DC home with antibiotics for her UTI and 10 mg of lisinopril and instructions to follow-up with her primary care provider by next week. Patient understands agrees with this plan. Time: 19:13 [facility] - Headache Medical Records Attestation: I reviewed the patient's medical records. Lab Data Attestation: I reviewed the patient's lab results. Result diagrams: 09/27/20 15:39 09/27/20 15:39 Labs: Lab Results 09/27/20 09/27/20 09/27/20 Range/Units 14:15 15:39 15:39 WBC 8.7 (4.8-10.8) X10*3/uL RBC 5.33 (4.20-5.50) X10*6/uL Hgb 15.6 (12.0-16.0) g/dl Hct 46.5 (37-47) % MCV 87.2 (80-98) fL MCH 29.3 (27.0-33.0) pg MCHC 33.5 (31.0-35.0) g/dl RDW 13.0 (11.0-16.0) % Plt Count 249 (160-400) X10*3/uL MPV 9.6 (9.4-12.3) fL Immature Gran % (Auto) 0.5 H (0.0-0.4) % Neut % (Auto) 77.6 H (45-73) % Lymph % (Auto) 15.6 L (20-40) % [place] % (Auto) 4.6 (2-11) % Eos % (Auto) 1.1 (0-4) % Baso % (Auto) 0.6 (0-2) % Lymph # (Auto) 1.4 (1.2-4.9) X10*3/uL [place] # (Auto) 0.4 (0.1-1.2) X10*3/uL Eos # (Auto) 0.1 (0.0-0.4) X10*3/uL Baso # (Auto) 0.1 (0.0-0.2) X10*3/uL Abs Immat Gran (auto) 0.04 H (0.00-0.03) X10*3/uL Absolute Neuts (auto) 6.8 (2.0-8.3) X10*3/uL Absolute Nucleated RBC 0.000 (0.0-0.012) X10*3/uL Nucleated RBC % (auto) 0.0 (0.0-0.2) /100WBC ESR 5 (0-20) MM/HR PT (10.8-13.0) SEC INR (0.9-1.1) APTT (24.1-38.0) SEC Sodium (135-145) mmol/L Potassium (3.3-5.1) mmol/L Chloride (96-108) mmol/L Carbon Dioxide (22-29) mmol/L Anion Gap (12-20) BUN (9-16) mg/dL Creatinine (0.5-1.4) mg/dL Estim Creat Clear Calc Estimated GFR Random Glucose (60-115) mg/dL Calcium (8.4-10.2) mg/dL Magnesium (1.6-2.6) mg/dL Total Bilirubin (0.0-1.0) mg/dL Direct Bilirubin (0.0-0.5) mg/dL AST (5-31) U/L ALT (0-31) U/L Alkaline Phosphatase (39-117) U/L Total Creatine Kinase (26-140) U/L Troponin I High Sens (<3.5-17.0) ng/L C-Reactive Protein (< or = 0.50) mg/dL B-Natriuretic Peptide (<100) pg/mL Total Protein (6.5-8.0) g/dL Albumin (3.5-5.0) g/dL Urine Color Urine Appearance Urine pH (5.0-8.0) Ur Specific [place] (1.005-1.025) Urine Protein (NEG-TRACE) MG/DL Urine Glucose (UA) (NEG) MG/DL Urine Ketones (NEG) MG/DL Urine Blood (NEG) Urine Nitrite (NEG) Ur Leukocyte Esterase (NEG) Urine RBC (0) /HPF Urine WBC (0-4) /HPF Ur Squamous Epith Cells /LPF Urine Bacteria /LPF Urine Yeast /HPF Coronavirus (PCR) (Negative) COVID-19 (DOMONIQUE) Negative (Negative) COVID-19 Clin Com See Note Influenza Type A (PCR) (Negative) Influenza Type B (PCR) (Negative) RSV RNA Qual (PCR) (Negative) 09/27/20 09/27/20 09/27/20 Range/Units 15:39 15:39 15:39 WBC (4.8-10.8) X10*3/uL RBC (4.20-5.50) X10*6/uL Hgb (12.0-16.0) g/dl Hct (37-47) % MCV (80-98) fL MCH (27.0-33.0) pg MCHC (31.0-35.0) g/dl RDW (11.0-16.0) % Plt Count (160-400) X10*3/uL MPV (9.4-12.3) fL Immature Gran % (Auto) (0.0-0.4) % Neut % (Auto) (45-73) % Lymph % (Auto) (20-40) % [place] % (Auto) (2-11) % Eos % (Auto) (0-4) % Baso % (Auto) (0-2) % Lymph # (Auto) (1.2-4.9) X10*3/uL [place] # (Auto) (0.1-1.2) X10*3/uL Eos # (Auto) (0.0-0.4) X10*3/uL Baso # (Auto) (0.0-0.2) X10*3/uL Abs Immat Gran (auto) (0.00-0.03) X10*3/uL Absolute Neuts (auto) (2.0-8.3) X10*3/uL Absolute Nucleated RBC (0.0-0.012) X10*3/uL Nucleated RBC % (auto) (0.0-0.2) /100WBC ESR (0-20) MM/HR PT 11.7 (10.8-13.0) SEC INR 1.0 (0.9-1.1) APTT 37.4 (24.1-38.0) SEC Sodium 141 (135-145) mmol/L Potassium 3.7 (3.3-5.1) mmol/L Chloride 105 (96-108) mmol/L Carbon Dioxide 27 (22-29) mmol/L Anion Gap 13 (12-20) BUN 17 H (9-16) mg/dL Creatinine 0.75 (0.5-1.4) mg/dL Estim Creat Clear Calc 78.3 Estimated GFR > 60 Random Glucose 98 (60-115) mg/dL Calcium 9.1 D (8.4-10.2) mg/dL Magnesium 2.1 (1.6-2.6) mg/dL Total Bilirubin 0.6 (0.0-1.0) mg/dL Direct Bilirubin 0.2 (0.0-0.5) mg/dL AST 17 (5-31) U/L ALT 11 (0-31) U/L Alkaline Phosphatase 112 (39-117) U/L Total Creatine Kinase 61 (26-140) U/L Troponin I High Sens 4.2 (<3.5-17.0) ng/L C-Reactive Protein 0.31 (< or = 0.50) mg/dL B-Natriuretic Peptide 29 (<100) pg/mL Total Protein 6.9 (6.5-8.0) g/dL Albumin 4.4 (3.5-5.0) g/dL Urine Color Urine Appearance Urine pH (5.0-8.0) Ur Specific [place] (1.005-1.025) Urine Protein (NEG-TRACE) MG/DL Urine Glucose (UA) (NEG) MG/DL Urine Ketones (NEG) MG/DL Urine Blood (NEG) Urine Nitrite (NEG) Ur Leukocyte Esterase (NEG) Urine RBC (0) /HPF Urine WBC (0-4) /HPF Ur Squamous Epith Cells /LPF Urine Bacteria /LPF Urine Yeast /HPF Coronavirus (PCR) (Negative) COVID-19 (DOMONIQUE) (Negative) COVID-19 Clin Com Influenza Type A (PCR) (Negative) Influenza Type B (PCR) (Negative) RSV RNA Qual (PCR) (Negative) 09/27/20 09/27/20 Range/Units 15:40 16:34 WBC (4.8-10.8) X10*3/uL RBC (4.20-5.50) X10*6/uL Hgb (12.0-16.0) g/dl Hct (37-47) % MCV (80-98) fL MCH (27.0-33.0) pg MCHC (31.0-35.0) g/dl RDW (11.0-16.0) % Plt Count (160-400) X10*3/uL MPV (9.4-12.3) fL Immature Gran % (Auto) (0.0-0.4) % Neut % (Auto) (45-73) % Lymph % (Auto) (20-40) % [place] % (Auto) (2-11) % Eos % (Auto) (0-4) % Baso % (Auto) (0-2) % Lymph # (Auto) (1.2-4.9) X10*3/uL [place] # (Auto) (0.1-1.2) X10*3/uL Eos # (Auto) (0.0-0.4) X10*3/uL Baso # (Auto) (0.0-0.2) X10*3/uL Abs Immat Gran (auto) (0.00-0.03) X10*3/uL Absolute Neuts (auto) (2.0-8.3) X10*3/uL Absolute Nucleated RBC (0.0-0.012) X10*3/uL Nucleated RBC % (auto) (0.0-0.2) /100WBC ESR (0-20) MM/HR PT (10.8-13.0) SEC INR (0.9-1.1) APTT (24.1-38.0) SEC Sodium (135-145) mmol/L Potassium (3.3-5.1) mmol/L Chloride (96-108) mmol/L Carbon Dioxide (22-29) mmol/L Anion Gap (12-20) BUN (9-16) mg/dL Creatinine (0.5-1.4) mg/dL Estim Creat Clear Calc Estimated GFR Random Glucose (60-115) mg/dL Calcium (8.4-10.2) mg/dL Magnesium (1.6-2.6) mg/dL Total Bilirubin (0.0-1.0) mg/dL Direct Bilirubin (0.0-0.5) mg/dL AST (5-31) U/L ALT (0-31) U/L Alkaline Phosphatase (39-117) U/L Total Creatine Kinase (26-140) U/L Troponin I High Sens (<3.5-17.0) ng/L C-Reactive Protein (< or = 0.50) mg/dL B-Natriuretic Peptide (<100) pg/mL Total Protein (6.5-8.0) g/dL Albumin (3.5-5.0) g/dL Urine Color STRAW Urine Appearance HAZY Urine pH 6.5 (5.0-8.0) Ur Specific [place] 1.010 (1.005-1.025) Urine Protein NEG (NEG-TRACE) MG/DL Urine Glucose (UA) NEG (NEG) MG/DL Urine Ketones NEG (NEG) MG/DL Urine Blood TRACE (NEG) Urine Nitrite NEG (NEG) Ur Leukocyte Esterase 3+ H (NEG) Urine RBC 1-4 (0) /HPF Urine WBC 10-14 H (0-4) /HPF Ur Squamous Epith Cells 2+ /LPF Urine Bacteria TRACE /LPF Urine Yeast 1+ /HPF Coronavirus (PCR) NEGATIVE (Negative) COVID-19 (DOMONIQUE) (Negative) COVID-19 Clin Com Influenza Type A (PCR) NEGATIVE (Negative) Influenza Type B (PCR) NEGATIVE (Negative) RSV RNA Qual (PCR) NEGATIVE (Negative) Imaging Data Chest x-ray: Attestation: I personally reviewed and interpreted this imaging study as follows: Radiologist's impression: FINDINGS: No significant abnormality is noted involving the heart, lungs, mediastinum, bony thorax or soft tissues. XR/XR chest 1V IMPRESSION: Unremarkable chest examination. CT scan of brain: Attestation: I personally reviewed and interpreted this imaging study as follows: Radiologist's impression: FINDINGS: There is no evidence of acute intracranial hemorrhage or territorial infarction. No abnormal mass effect or midline shift is seen. Leija to white matter differentiation is well preserved. No extra-axial fluid collections are identified. The ventricles are normal in size. There is no abnormal attenuation within the brain parenchyma. The osseous structures and soft tissues are normal. There is mild mucoperiosteal thickening involving bilateral maxillary sinuses. Mild degenerative changes right TM joints are noted. CT/CT head/brain wo con IMPRESSION: No acute intracranial process seen Chronic bilateral maxillary sinus inflammatory changes. Mild right TM joint arthritis. CT scan of abdomen and pelvis without IV contrast: Attestation: I personally reviewed and interpreted this imaging study as follows: Radiologist's impression: FINDINGS: LUNG BASES: The visualized lung bases are unremarkable. LIVER, GALLBLADDER, AND BILIARY TREE: The liver is normal in size, shape, and attenuation. No focal hepatic lesion or biliary ductal dilatation is present. The gallbladder is unremarkable with no evidence of radiopaque gallstones, gallbladder wall thickening, or obvious pericholecystic inflammatory changes. PANCREAS: Unremarkable. SPLEEN: Unremarkable. ADRENAL GLANDS: Unremarkable. KIDNEYS AND URETERS: The kidneys are normal in size, shape, and attenuation. Multiple cystic structures are present in the region of the renal pelvis, left significantly greater than the right. I suspect that these represent parapelvic cysts. No hydronephrosis, hydroureter, or calculi seen. No perinephric stranding. BLADDER: The bladder is nearly empty and demonstrates symmetric wall thickening. No calculi are seen. GASTROINTESTINAL TRACT: The small and large bowel are unremarkable. The appendix is unremarkable. ABDOMINAL WALL: No significant hernia is appreciated. LYMPH NODES: Normal. VASCULAR: Unremarkable. PELVIC VISCERA: Status post hysterectomy. An abnormal adnexal mass or free intraperitoneal fluid is not seen. OSSEOUS STRUCTURES: Unremarkable. Mild degenerative changes present in the lower thoracic spine. CT/CT abdomen pelvis wo con IMPRESSION: Probable bilateral parapelvic cysts. Left greater than right. This could be confirmed with CT urography, especially the patient continues to have continued left flank pain.. ECG Data Attestation: I personally reviewed and interpreted this ECG as follows: ECG interpretation date: 09/27/20 ECG interpretation time: 16:17 Interpretation: Normal sinus rhythm and trich rate of 70 with a normal [place] interval normal QRS duration normal QT/QTC interval. No acute ischemic changes noted. Similar when compared to prior EKG on 07/26/2020 Critical Care Time Critical Care Time Critical Care Time: Yes Total Critical Care Time: 60 Attestation: I personally attest to this time spent taking care of the patient Discharge Plan Discharge Clinical Impression: Hypertension, Headache, Parapelvic renal cyst, TMJ arthritis, Chronic sinusitis, UTI (urinary tract infection) Patient Disposition: Home, Self-Care Instructions: Urinary Tract Infection in Women (ED), Hypertension (ED) Prescriptions: New levofloxacin 750 mg tablet 750 mg PO DAILY 7 Days Qty: 7 RF: 0 lisinopril 10 mg tablet 10 mg PO DAILY Qty: 30 RF: 0 Referrals: Kahlil Sharpe MD [Primary Care Provider] - 3 days Print Language: Cuban
[2020-09-27 16:38] LABS: Erythrocyte Sedimentation Rate 5 MM/HR (0-20)
[2020-09-27 16:42] LABS: Glucose Urine UA NEG (NEG); Leukocyte Esterase Urine 3+ (NEG); Nitrite Urine NEG (NEG); PH 6.5 (5.0-8.0); UACC Culture Trigger YES; Urine Blood TRACE (NEG); Urine Ketones NEG (NEG); Urine Protein NEG (NEG-TRACE)
[2020-09-27 16:46] LABS: Appearance Urine HAZY; Color Urine STRAW
[2020-09-27 16:46] LABS: Influenza A PCR NEGATIVE (Negative); Influenza B PCR NEGATIVE (Negative); Resp Syncy Virus RNA Qual PCR NEGATIVE (Negative); SARS COV2 PCR INHOUSE NEGATIVE (Negative)
[2020-09-27 17:01] LABS: Bacteria Urine TRACE /LPF; Squamous Epithelial Cell Urine 2+ /LPF
[2020-09-27] MEDS: lisinopriL 5 MG TABLET PO (18:40)
[2020-09-27 19:10] VITALS: BP 168/99; PULSE 65; RESP 16; O2SAT 97
[2020-09-27] MEDS: Acetaminophen 325 MG TABLET 975 MG PO (19:33)
== END 2020-09-27 19:45 | disposition home or self-care (01) ==
PROVIDERS: Physician Assistant Medical; Emergency Provider Emergency Medicine Emergency Medical Services; PCP Internal Medicine
DX: R51.9 Headache, unspecified (principal); I10 Essential (primary) hypertension; N39.0 Urinary tract infection, site not specified; Q61.02 Congenital multiple renal cysts; M26.641 Arthritis of right temporomandibular joint; J32.0 Chronic maxillary sinusitis; Z20.822 Contact with and (suspected) exposure to COVID-19
CPT/HCPCS: 0241U; 36415; 70450; 71045; 74176; 80048; 80076; 81001; 81003; 82550; 83735; 83880; 84484; 85025; 85610; 85652; 85730; 86140; 87086; 87635; 93005; 96360; 99284; 99291

== ENCOUNTER 2022-02-09 16:21 | Emergency (ER) | payer BC, SELFPAY ==
[2022-02-09 17:33] VITALS: BP 140/88; PULSE 79; RESP 18; TEMP 36.7; O2SAT 96; BMI 32.8
--- NOTE | 2022-02-09 19:52 | ED.ALLEREA ---
HPI - Allergic Reaction General Chief complaint: Allergic Reaction Stated complaint: Allergic Rx to Meds Source: patient Mode of arrival: ambulatory History of Present Illness HPI narrative: 61 yold patient presents to the for allergic reaction due to bactrim. Patient states she woke up after taking bactrim 4 days ago with left upper lip swelling, left facial swelling, with itchiness and hives of left side of face. patient states she fel throat was swollen and itching. patient stopped taking the bactirm. Her PCP than ordered her prednisone. patient states since than only left facial swelling with hive and itchiness and residual left upper swelling without sensaton of throat closing or shortness of breath. patient states taking lisinopril for years Related Data Previous Rx's Medication Instructions Recorded levofloxacin 750 mg tablet 750 mg PO DAILY 7 days #7 tabs 09/27/20 lisinopril 10 mg tablet 10 mg PO DAILY hypertension #30 09/27/20 tabs epinephrine 0.3 mg/0.3 mL 0.3 mg (0.3 mL) IM Q20M PRN 02/09/22 injection, auto-injector anaphylaxis #2 ea famotidine 20 mg tablet (Pepcid) 20 mg PO BID 10 days #20 tabs 02/09/22 hydroxyzine HCl 25 mg tablet 25 mg PO TID PRN itching 7 days 02/09/22 #21 tabs Allergies Allergy/AdvReac Type Severity Reaction Status Date / Time eggplant [EGGPLANT] Allergy Mild HIVES Verified 02/09/22 17:33 oxycodone [From PERCOCET] AdvReac Mild NAUSEA & Verified 02/09/22 17:33 VOMITING sulfamethoxazole AdvReac Swelling Verified 02/09/22 17:33 [From Bactrim] trimethoprim [From Bactrim] AdvReac Swelling Verified 02/09/22 17:33 Review of Systems Review of Systems: left sided itchiness, hives, left upper lip swelling. Yes all other systems are reviewed and are negative [facility] Social History Social History Alcohol intake: never Advance Directives: No Advance Directives Information Provided: No Physical Exam ED Vital Signs: Vital Signs - 24 hr 02/09/22 17:33 Temperature 98.1 F Pulse Rate 79 Respiratory Rate 18 Blood Pressure 140/88 H Pulse Oximetry 96 Oxygen Delivery Method Room Air BMI result Body Mass Index 32.8 Const General: cooperative, healthy appearing, comfortable, no acute distress, well developed, alert, awake and Physically active Orientation/consciousness: patient oriented x3 HENCO Other: tongue and uvula is normal Head: Yes normal to inspection, Yes No palpable skull fracture present, Yes normocephalic and Yes atraumatic Head images: 1. slight swelling. 2. positive for hives and slight swelling. Eyes General: appearance normal, both eyes and all related structures Neck Neck: Yes normal visual inspection, Yes full ROM, Yes no lymphadenopathy, Yes no meningeal signs, Yes trachea midline, Yes supple, No anterior neck swelling and No tender Chest Chest palpation & inspection: normal inspection of the chest and normal palpation of entire chest wall Resp Effort & Inspection: normal respiratory effort and able to speak in complete sentences Auscultation: clear to auscultation bilaterally Cardio Jugular venous distension: no JVD Heart sounds: S1 normal heart sound present and S2 normal heart sound present GI Inspection: Yes normal to inspection and No abdominal wall ecchymosis Palpation (GI): Soft to palpation, not firm, nontender, no guarding and not rigid General: No CVA tenderness and Yes no CVA tenderness Back/Spine/Pelvis Back: no CVA tenderness, No CVA tenderness and No back tenderness Skin General skin exam: no rashes or lesions noted and elasticity normal Neuro General: patient oriented x3, gait normal, no meningeal signs and CN's II-XI intact bilaterally Cranial nerves: Yes CN's II-XII intact bilaterally Extrem General: Yes normal to inspection and Yes full ROM Psych Appearance: grossly normal, well kempt and not disheveled Course Course Course Narrative: Patient is stable. Reevaluation(s) Reevaluation #1: patient educated on no longer taking bactrim. patient informed to hold her lisonpril until she speaks to her PCP due to lisnopril can cause angioedema. patient educated on signs of anyphylaxis and instructed to take epipen if she has them. patiient also informed to start taking prednisone that was presribed by her PCP. patient will be dsicharged with pepcid and atarrax. patient states not able to take benadryl. Patient safe for discharge. presently no angioedema Time: 20:00 Discharge Plan Discharge Clinical Impression: Allergic reaction Patient Disposition: Home, Self-Care Instructions: General Allergic Reaction (ED) Additional Instructions: Return to the ED immediately for any worsening swelling, sensation of throat closing, worsening rash, shortness of breath, fever, chills, swelling of tongue/lips/face, or any other conerning symptoms. Do not continue taking bactrim. Do not take your lisinopril until you tallk to your PCP tomorrow. Take PRednisone prescribed by your PCP. You will be prescribed ataraax and pepcid. Do not take newly prescribed nitrofarantoin until you talk to your provider. If needed. Inject epi-pen into thigh. Prescriptions: New famotidine [Pepcid] 20 mg tablet 20 mg PO BID 10 Days Qty: 20 0RF hydroxyzine HCl 25 mg tablet 25 mg PO TID PRN (Reason: itching) 7 Days Qty: 21 0RF epinephrine 0.3 mg/0.3 mL auto-injector 0.3 mg IM Q20M PRN (Reason: anaphylaxis) Qty: 2 0RF Rx Instructions: for 2 doses No Action levofloxacin 750 mg tablet 750 mg PO DAILY 7 Days Qty: 7 0RF lisinopril 10 mg tablet 10 mg PO DAILY Qty: 30 0RF Referrals: Kahlil Sharpe MD [Primary Care Provider] - (Allergic reaction) Stand Alone Forms: Work/School Release Interventions: ED Discharge Assessment Last Done: 02/09/22 20:43 Discharge Date/Time: 02/09/22 20:44 Print Language: Tanzanian
== END 2022-02-09 20:44 | disposition home or self-care (01) ==
PROVIDERS: Emergency Provider Internal Medicine; PCP Internal Medicine
DX: L23.9 Allergic contact dermatitis, unspecified cause (principal); Z79.899 Other long term (current) drug therapy
CPT/HCPCS: 99282; 99283

== ENCOUNTER 2022-10-31 19:14 | Emergency (ER) | payer BC, SELFPAY ==
--- NOTE | ~2022-10-31 | XR_ITS ---
EXAMINATION: XR CHEST CLINICAL INFORMATION: Pain. COMPARISON: Chest radiograph 09/27/2020. TECHNIQUE: 2 views of the chest were obtained. FINDINGS: Normal appearance of the cardiomediastinal silhouette. No focal airspace opacity, pleural effusion or pneumothorax. Age indeterminate minimal displaced fractures of the right posterior segment/third ribs. Thoracic spondylosis. XR/XR chest 2V IMPRESSION: 1. No acute cardiopulmonary findings. 2. Age indeterminate minimal displaced fractures of the right posterior segment/third ribs. Correlate for point tenderness.
[2022-10-31 19:16] VITALS: BP 173/85; PULSE 75; RESP 18; TEMP 37.5; O2SAT 95; BMI 32.8
--- NOTE | 2022-10-31 19:20 | ECG_ITS ---
Test Reason : DIZZINESS Blood Pressure : / mmHG Vent. Rate : 062 BPM Atrial Rate : 062 BPM P-R Int : 154 ms QRS Dur : 080 ms QT Int : 432 ms P-R-T Axes : 061 022 024 degrees QTc Int : 438 ms Normal sinus rhythm Normal ECG When compared with ECG of 27-SEP-2020 16:17, No significant change was found Referred By: Boy Rajput Electronically Signed By:CHAO GEORGES
--- NOTE | 2022-10-31 19:22 | ED.GENADULT ---
HPI - General Adult General Chief complaint: Dizziness <Boy Rajput - Last Filed: 10/31/22 19:22> Stated complaint: ?Stroke <Boy Rajput - Last Filed: 10/31/22 19:22> Time Seen by Provider: 10/31/22 21:03 <Boy Rajput - Last Filed: 10/31/22 19:22> Source: patient <Rajiv Butt MD - Last Filed: 10/31/22 22:33> Mode of arrival: ambulatory <Rajiv Butt MD - Last Filed: 10/31/22 22:33> Limitations: no limitations <Rajiv Butt MD - Last Filed: 10/31/22 22:33> History of Present Illness HPI narrative: 62-year-old female with vision changes. Vision was described as foggy and then photosensitivity. Symptoms persist but have improved. She described th symptoms as moderate. No clear relieving or exacerbating features. Never had this before. No focal deficits or vision loss. Does have chronic vertigo which is unchanged and has been to PT for this in the past. She has a mild to moderate frontal headache. The pain does not radiate. It is slightly worse with light but not sound. There is no neck pain or stiffness. No prior treatment. <Rajiv Butt MD - Last Filed: 10/31/22 22:33> Related Data Home medications: Previous Rx's Medication Instructions Recorded levofloxacin 750 mg tablet 750 mg PO DAILY 7 days #7 tabs 09/27/20 lisinopril 10 mg tablet 10 mg PO DAILY hypertension #30 09/27/20 tabs epinephrine 0.3 mg/0.3 mL 0.3 mg (0.3 mL) IM Q20M PRN 02/09/22 injection, auto-injector anaphylaxis #2 ea famotidine 20 mg tablet (Pepcid) 20 mg PO BID 10 days #20 tabs 02/09/22 hydroxyzine HCl 25 mg tablet 25 mg PO TID PRN itching 7 days 02/09/22 #21 tabs ondansetron 4 mg disintegrating 4 mg PO Q8H PRN nausea and 10/31/22 tablet vomiting #10 tabs <Boy Rajput - Last Filed: 10/31/22 19:22> Allergies/adverse reactions: Allergies Allergy/AdvReac Type Severity Reaction Status Date / Time eggplant [EGGPLANT] Allergy Mild HIVES Verified 10/31/22 19:16 lisinopril Allergy Hives Verified 10/31/22 19:16 oxycodone [From PERCOCET] AdvReac Mild NAUSEA & Verified 10/31/22 19:16 VOMITING sulfamethoxazole AdvReac Swelling Verified 10/31/22 19:16 [From Bactrim] trimethoprim [From Bactrim] AdvReac Swelling Verified 10/31/22 19:16 <Boy Rajput - Last Filed: 10/31/22 19:22> [facility] Social History Social History: Social History Alcohol intake: never Smoked in Last 30 Days: No Use of substances other than those prescribed or required for medical reasons: No Substance Use Type: Caffiene Advance Directives: No Advance Directives Information Provided: No Patient : No <Boy Rajput - Last Filed: 10/31/22 19:22> Physical Exam ED Vital Signs: Vital Signs - 24 hr 10/31/22 19:16 10/31/22 19:49 10/31/22 19:50 Temperature 99.5 F Pulse Rate 75 73 66 Respiratory Rate 18 Blood Pressure 173/85 H 166/71 H 164/81 H Pulse Oximetry 95 Oxygen Delivery Method Room Air 10/31/22 19:50 10/31/22 20:00 10/31/22 22:00 Temperature 98.5 F 98.2 F Pulse Rate 70 67 62 Respiratory Rate 16 15 Blood Pressure 144/87 H 144/87 H 135/73 Pulse Oximetry 97 99 Oxygen Delivery Method Room Air Room Air BMI result Body Mass Index 32.8 <Boy Rajput - Last Filed: 10/31/22 19:22> Vital Signs - 24 hr 10/31/22 19:16 10/31/22 19:49 10/31/22 19:50 Temperature 99.5 F Pulse Rate 75 73 66 Respiratory Rate 18 Blood Pressure 173/85 H 166/71 H 164/81 H Pulse Oximetry 95 Oxygen Delivery Method Room Air 10/31/22 19:50 10/31/22 20:00 10/31/22 22:00 Temperature 98.5 F 98.2 F Pulse Rate 70 67 62 Respiratory Rate 16 15 Blood Pressure 144/87 H 144/87 H 135/73 Pulse Oximetry 97 99 Oxygen Delivery Method Room Air Room Air BMI result Body Mass Index 32.8 <Rajiv Butt MD - Last Filed: 10/31/22 22:33> GEN: Well developed, no acute distress, alert, oriented HEENT: Normocephalic, atraumatic, normal external ears, nose appears normal, no oropharyngeal edema or exudates Eyes: Normal to appearance Neck: Supple, no lymphadenopathy Respiratory: Talks in complete sentences, no respiratory distress, clear to auscultation bilaterally Cardiovascular: Regular rate and rhythm, no murmurs rubs or gallops Abdomen: Soft, nontender, nondistended, no guarding, no rebound Back: No CVA tenderness Extremities: No clubbing cyanosis or edema Neurologic: No focal neurologic deficits, cranial nerves 2-12 intact, strength is 5/5 bilaterally, visual lewis intact. Skin: No rash <Rajiv Butt MD - Last Filed: 10/31/22 22:33> Course Course Course Narrative: 62-year-old female past medical history significant for hypertension, anxiety, depression, vertigo presents for evaluation of dizziness x1. She reports blurry vision and started about 7.5 hours ago. Neuro was intact in triage. Plan for labs and further workup as indicated <Boy Rajput - Last Filed: 10/31/22 19:22> Reevaluation(s) Reevaluation #1: discussed results. Will discharge, follow up with retinal specilaist Wednesday. Sohail Rx Zofran <Rajiv Butt MD - Last Filed: 10/31/22 22:33> Time: 22:32 <Rajiv Butt MD - Last Filed: 10/31/22 22:33> Medications Administered Discontinued Medications Generic Name Dose Route Start Last Admin Trade Name Freq PRN Reason Stop Dose Admin Ondansetron HCl 4 mg 10/31/22 21:12 10/31/22 21:35 Ondansetron Odt 4 Mg Tab.Rapdis TRANSLINGU 10/31/22 21:13 4 mg ONCE ONE Administration <Boy Rajput - Last Filed: 10/31/22 19:22> Medications Administered Discontinued Medications Generic Name Dose Route Start Last Admin Trade Name Freq PRN Reason Stop Dose Admin Ondansetron HCl 4 mg 10/31/22 21:12 10/31/22 21:35 Ondansetron Odt 4 Mg Tab.[place] OTDDINGU 10/31/22 21:13 4 mg ONCE ONE Administration <Rajiv Butt MD - Last Filed: 10/31/22 22:33> Medical Decision Making Medical Decision Making MDM Narrative: Patient with vision changes and headache. Exam benign and nonfocal. No visual field loss. EOMI, PERRLA. No focal deficits. No indication for CT scan at this time as symptoms are bilatral blurred vision and photosensitivity with headache. Plan labs, zofran, ECG. Reevaluate. <Rajiv Butt MD - Last Filed: 10/31/22 22:33> Differential Diagnosis Differential Diagnoses: The differential diagnosis associated with the presentation includes (migraine, vision changes, headache, TA, vertigo, tension headache, cluster headache.) <Rajiv Butt MD - Last Filed: 10/31/22 22:33> Vision changes, headache. <Rajiv Butt MD - Last Filed: 10/31/22 22:33> Admission/Observation Consideration of admission/observation: Escalation of care including admission/observation considered <Rajiv Butt MD - Last Filed: 10/31/22 22:33> Lab Data MDM Lab Attestation statement: I reviewed the patient's lab results. <Rajiv Butt MD - Last Filed: 10/31/22 22:33> Result Diagrams: 10/31/22 19:47 10/31/22 19:47 <Boy Rajput - Last Filed: 10/31/22 19:22> Labs: Lab Results 10/31/22 10/31/22 10/31/22 Range/Units 19:45 19:47 19:47 WBC 7.2 (4.8-10.8) X10*3/uL RBC 4.81 (4.20-5.50) X10*6/uL Hgb 14.0 (12.0-16.0) g/dl Hct 41.2 (37.0-47.0) % MCV 85.7 (80.0-98.0) fL MCH 29.1 (27.0-33.0) pg MCHC 34.0 (31.0-35.0) g/dl RDW 12.9 (11.0-16.0) % Plt Count 238 (160-400) X10*3/uL MPV 9.7 (9.4-12.3) fL Immature Gran % (Auto) 0.7 H (0.0-0.4) % Neut % (Auto) 58.9 (45-73) % Lymph % (Auto) 28.7 (20-40) % [place] % (Auto) 8.1 (2-11) % Eos % (Auto) 2.6 (0-4) % Baso % (Auto) 1.0 (0-2) % Lymph # (Auto) 2.1 (1.2-4.9) X10*3/uL [place] # (Auto) 0.6 (0.1-1.2) X10*3/uL Eos # (Auto) 0.2 (0.0-0.4) X10*3/uL Baso # (Auto) 0.1 (0.0-0.2) X10*3/uL Abs Immat Gran (auto) 0.05 H (0.00-0.03) X10*3/uL Absolute Neuts (auto) 4.2 (2.0-8.3) x10*3/uL Absolute Nucleated RBC 0.000 (0.0-0.012) X10*3/uL Nucleated RBC % (auto) 0.0 (0.0-0.2) /100WBC ESR (0-20) MM/HR Sodium 140 (135-145) mmol/L Potassium 4.1 (3.3-5.1) mmol/L Chloride 105 (96-108) mmol/L Carbon Dioxide 26 (22-29) mmol/L Anion Gap 13 (12-20) BUN 19 H (9-16) mg/dL Creatinine 0.81 (0.5-1.4) mg/dL Estim Creat Clear Calc 72.0 Estimated GFR > 60 POC Glucose 101 (60-115) mg/dL Random Glucose 98 (60-115) mg/dL Calcium 9.0 (8.4-10.2) mg/dL Magnesium 2.0 (1.6-2.6) mg/dL Total Bilirubin 0.2 (0.0-1.0) mg/dL AST 17 (5-31) U/L ALT 15 (0-31) U/L Alkaline Phosphatase 109 (39-117) U/L Troponin I High Sens (<3.5-17.0) ng/L Total Protein 6.1 L (6.5-8.0) g/dL Albumin 3.9 (3.5-5.0) g/dL Lipase 25 (8-78) U/L Urine Color Urine Appearance Urine pH (5.0-9.0) Ur Specific [place] (1.005-1.025) Urine Protein (Neg-Trace) mg/dL Urine Glucose (UA) (Negative) mg/dL Urine Ketones (Negative) mg/dL Urine Blood (Negative) Urine Nitrite (Negative) Ur Leukocyte Esterase (Negative) Urine RBC (0-2) /HPF Urine WBC (0-5) /HPF Ur Squamous Epith Cells (0-2) /HPF Urine Bacteria (None Seen) Hyaline Casts (0-2) /LPF 10/31/22 10/31/22 10/31/22 Range/Units 19:47 20:26 21:23 WBC (4.8-10.8) X10*3/uL RBC (4.20-5.50) X10*6/uL Hgb (12.0-16.0) g/dl Hct (37.0-47.0) % MCV (80.0-98.0) fL MCH (27.0-33.0) pg MCHC (31.0-35.0) g/dl RDW (11.0-16.0) % Plt Count (160-400) X10*3/uL MPV (9.4-12.3) fL Immature Gran % (Auto) (0.0-0.4) % Neut % (Auto) (45-73) % Lymph % (Auto) (20-40) % [place] % (Auto) (2-11) % Eos % (Auto) (0-4) % Baso % (Auto) (0-2) % Lymph # (Auto) (1.2-4.9) X10*3/uL [place] # (Auto) (0.1-1.2) X10*3/uL Eos # (Auto) (0.0-0.4) X10*3/uL Baso # (Auto) (0.0-0.2) X10*3/uL Abs Immat Gran (auto) (0.00-0.03) X10*3/uL Absolute Neuts (auto) (2.0-8.3) x10*3/uL Absolute Nucleated RBC (0.0-0.012) X10*3/uL Nucleated RBC % (auto) (0.0-0.2) /100WBC ESR 5 (0-20) MM/HR Sodium (135-145) mmol/L Potassium (3.3-5.1) mmol/L Chloride (96-108) mmol/L Carbon Dioxide (22-29) mmol/L Anion Gap (12-20) BUN (9-16) mg/dL Creatinine (0.5-1.4) mg/dL Estim Creat Clear Calc Estimated GFR POC Glucose (60-115) mg/dL Random Glucose (60-115) mg/dL Calcium (8.4-10.2) mg/dL Magnesium (1.6-2.6) mg/dL Total Bilirubin (0.0-1.0) mg/dL AST (5-31) U/L ALT (0-31) U/L Alkaline Phosphatase (39-117) U/L Troponin I High Sens < 2.7 (<3.5-17.0) ng/L Total Protein (6.5-8.0) g/dL Albumin (3.5-5.0) g/dL Lipase (8-78) U/L Urine Color Yellow Urine Appearance Clear Urine pH 7.5 (5.0-9.0) Ur Specific [place] 1.015 (1.005-1.025) Urine Protein Negative (Neg-Trace) mg/dL Urine Glucose (UA) Negative (Negative) mg/dL Urine Ketones Negative (Negative) mg/dL Urine Blood Negative (Negative) Urine Nitrite Negative (Negative) Ur Leukocyte Esterase Small (1+) H (Negative) Urine RBC 0-2 (0-2) /HPF Urine WBC 0-5 (0-5) /HPF Ur Squamous Epith Cells 0-2 (0-2) /HPF Urine Bacteria None Seen (None Seen) Hyaline Casts 0-2 (0-2) /LPF <Boy Rajput - Last Filed: 04/22/23 19:22> Lab Results 10/31/22 10/31/22 10/31/22 Range/Units 19:45 19:47 19:47 WBC 7.2 (4.8-10.8) X10*3/uL RBC 4.81 (4.20-5.50) X10*6/uL Hgb 14.0 (12.0-16.0) g/dl Hct 41.2 (37.0-47.0) % MCV 85.7 (80.0-98.0) fL MCH 29.1 (27.0-33.0) pg MCHC 34.0 (31.0-35.0) g/dl RDW 12.9 (11.0-16.0) % Plt Count 238 (160-400) X10*3/uL MPV 9.7 (9.4-12.3) fL Immature Gran % (Auto) 0.7 H (0.0-0.4) % Neut % (Auto) 58.9 (45-73) % Lymph % (Auto) 28.7 (20-40) % [place] % (Auto) 8.1 (2-11) % Eos % (Auto) 2.6 (0-4) % Baso % (Auto) 1.0 (0-2) % Lymph # (Auto) 2.1 (1.2-4.9) X10*3/uL [place] # (Auto) 0.6 (0.1-1.2) X10*3/uL Eos # (Auto) 0.2 (0.0-0.4) X10*3/uL Baso # (Auto) 0.1 (0.0-0.2) X10*3/uL Abs Immat Gran (auto) 0.05 H (0.00-0.03) X10*3/uL Absolute Neuts (auto) 4.2 (2.0-8.3) x10*3/uL Absolute Nucleated RBC 0.000 (0.0-0.012) X10*3/uL Nucleated RBC % (auto) 0.0 (0.0-0.2) /100WBC ESR (0-20) MM/HR Sodium 140 (135-145) mmol/L Potassium 4.1 (3.3-5.1) mmol/L Chloride 105 (96-108) mmol/L Carbon Dioxide 26 (22-29) mmol/L Anion Gap 13 (12-20) BUN 19 H (9-16) mg/dL Creatinine 0.81 (0.5-1.4) mg/dL Estim Creat Clear Calc 72.0 Estimated GFR > 60 POC Glucose 101 (60-115) mg/dL Random Glucose 98 (60-115) mg/dL Calcium 9.0 (8.4-10.2) mg/dL Magnesium 2.0 (1.6-2.6) mg/dL Total Bilirubin 0.2 (0.0-1.0) mg/dL AST 17 (5-31) U/L ALT 15 (0-31) U/L Alkaline Phosphatase 109 (39-117) U/L Troponin I High Sens (<3.5-17.0) ng/L Total Protein 6.1 L (6.5-8.0) g/dL Albumin 3.9 (3.5-5.0) g/dL Lipase 25 (8-78) U/L Urine Color Urine Appearance Urine pH (5.0-9.0) Ur Specific [place] (1.005-1.025) Urine Protein (Neg-Trace) mg/dL Urine Glucose (UA) (Negative) mg/dL Urine Ketones (Negative) mg/dL Urine Blood (Negative) Urine Nitrite (Negative) Ur Leukocyte Esterase (Negative) Urine RBC (0-2) /HPF Urine WBC (0-5) /HPF Ur Squamous Epith Cells (0-2) /HPF Urine Bacteria (None Seen) Hyaline Casts (0-2) /LPF 10/31/22 10/31/22 10/31/22 Range/Units 19:47 20:26 21:23 WBC (4.8-10.8) X10*3/uL RBC (4.20-5.50) X10*6/uL Hgb (12.0-16.0) g/dl Hct (37.0-47.0) % MCV (80.0-98.0) fL MCH (27.0-33.0) pg MCHC (31.0-35.0) g/dl RDW (11.0-16.0) % Plt Count (160-400) X10*3/uL MPV (9.4-12.3) fL Immature Gran % (Auto) (0.0-0.4) % Neut % (Auto) (45-73) % Lymph % (Auto) (20-40) % [place] % (Auto) (2-11) % Eos % (Auto) (0-4) % Baso % (Auto) (0-2) % Lymph # (Auto) (1.2-4.9) X10*3/uL [place] # (Auto) (0.1-1.2) X10*3/uL Eos # (Auto) (0.0-0.4) X10*3/uL Baso # (Auto) (0.0-0.2) X10*3/uL Abs Immat Gran (auto) (0.00-0.03) X10*3/uL Absolute Neuts (auto) (2.0-8.3) x10*3/uL Absolute Nucleated RBC (0.0-0.012) X10*3/uL Nucleated RBC % (auto) (0.0-0.2) /100WBC ESR 5 (0-20) MM/HR Sodium (135-145) mmol/L Potassium (3.3-5.1) mmol/L Chloride (96-108) mmol/L Carbon Dioxide (22-29) mmol/L Anion Gap (12-20) BUN (9-16) mg/dL Creatinine (0.5-1.4) mg/dL Estim Creat Clear Calc Estimated GFR POC Glucose (60-115) mg/dL Random Glucose (60-115) mg/dL Calcium (8.4-10.2) mg/dL Magnesium (1.6-2.6) mg/dL Total Bilirubin (0.0-1.0) mg/dL AST (5-31) U/L ALT (0-31) U/L Alkaline Phosphatase (39-117) U/L Troponin I High Sens < 2.7 (<3.5-17.0) ng/L Total Protein (6.5-8.0) g/dL Albumin (3.5-5.0) g/dL Lipase (8-78) U/L Urine Color Yellow Urine Appearance Clear Urine pH 7.5 (5.0-9.0) Ur Specific [place] 1.015 (1.005-1.025) Urine Protein Negative (Neg-Trace) mg/dL Urine Glucose (UA) Negative (Negative) mg/dL Urine Ketones Negative (Negative) mg/dL Urine Blood Negative (Negative) Urine Nitrite Negative (Negative) Ur Leukocyte Esterase Small (1+) H (Negative) Urine RBC 0-2 (0-2) /HPF Urine WBC 0-5 (0-5) /HPF Ur Squamous Epith Cells 0-2 (0-2) /HPF Urine Bacteria None Seen (None Seen) Hyaline Casts 0-2 (0-2) /LPF <Rajiv Butt MD - Last Filed: 10/31/22 22:33> Independent Interpretation I performed an independent interpretation of an: EKG (NSR 62, normal intervals, No acute ST T wave changes.) and Plain X-Ray (CXR: no acute disease) <Rajiv Butt MD - Last Filed: 10/31/22 22:33> Tests considered The following testing was considered but not selected: CT/MRI brain <Rajiv Butt MD - Last Filed: 10/31/22 22:33> Prescription Management I considered prescription management with: Other (antiemetics) <Rajiv Butt MD - Last Filed: 10/31/22 22:33> Chronic Conditions Patient?s care impacted by: Hypertension and Other (Vertigo) <Rajiv Butt MD - Last Filed: 10/31/22 22:33> Discharge Plan Discharge Clinical Impression: Hypertension, Vertigo, Change in vision, Frontal headache <Boy Rajput - Last Filed: 10/31/22 19:22> Patient Disposition: Home, Self-Care <Boy Rajput - Last Filed: 10/31/22 19:22> Instructions: Vertigo (ED), Acute Headache (ED), Chronic Hypertension (ED), Blurred Vision (ED) <Boy Rajput - Last Filed: 10/31/22 19:22> Prescriptions: New ondansetron 4 mg tablet,disintegrating 4 mg PO Q8H PRN (Reason: nausea and vomiting) Qty: 10 0RF No Action levofloxacin 750 mg tablet 750 mg PO DAILY 7 Days Qty: 7 0RF lisinopril 10 mg tablet 10 mg PO DAILY Qty: 30 0RF famotidine [Pepcid] 20 mg tablet 20 mg PO BID 10 Days Qty: 20 0RF hydroxyzine HCl 25 mg tablet 25 mg PO TID PRN (Reason: itching) 7 Days Qty: 21 0RF epinephrine 0.3 mg/0.3 mL auto-injector 0.3 mg IM Q20M PRN (Reason: anaphylaxis) Qty: 2 0RF Rx Instructions: for 2 doses <Boy Rajput - Last Filed: 10/31/22 19:22> Referrals: Kahlil Sharpe MD [Primary Care Provider] - 3 days <Boy Rajput - Last Filed: 10/31/22 19:22>
[2022-10-31 19:49] VITALS: BP 166/71; PULSE 73
[2022-10-31 19:50] VITALS: BP 144/87; BP 164/81; PULSE 66; PULSE 70
[2022-10-31 19:53] LABS: MANUAL DIFF FLAG NO
[2022-10-31 19:55] LABS: Basophils Absolute Auto 0.1 X10*3/uL (0.0-0.2); Eosinophils Absolute Auto 0.2 X10*3/uL (0.0-0.4); Eosinophils Percent Auto 2.6 % (0-4); Hematocrit 41.2 % (37.0-47.0); Imm Gran Abs Auto 0.05 X10*3/uL (0.00-0.03); Imm Gran Pct Auto 0.7 % (0.0-0.4); Lymphocytes Absolute Auto 2.1 X10*3/uL (1.2-4.9); Lymphocytes Percent Auto 28.7 % (20-40); Mean Corpuscular Hemoglobin 29.1 pg (27.0-33.0); Mean Corpuscular Volume 85.7 fL (80.0-98.0); Mean Platelet Volume 9.7 fL (9.4-12.3); Monocytes Absolute Auto 0.6 X10*3/uL (0.1-1.2); Monocytes Percent Auto 8.1 % (2-11); Neutrophils Absolute Auto 4.2 x10*3/uL (2.0-8.3); Neutrophils Percent Auto 58.9 % (45-73); Platelet Count 238 X10*3/uL (160-400); Red Blood Count 4.81 X10*6/uL (4.20-5.50); Red Cell Distribution Width 12.9 % (11.0-16.0); White Blood Count 7.2 X10*3/uL (4.8-10.8)
[2022-10-31 20:00] VITALS: BP 144/87; PULSE 67; RESP 16; TEMP 36.9; O2SAT 97
[2022-10-31 20:09] LABS: Alanine Aminotransferase 15 U/L (0-31); Albumin Level 3.9 g/dL (3.5-5.0); Alkaline Phosphatase 109 U/L (39-117); Anion Gap 13 (12-20); Aspartate Amino Transferase 17 U/L (5-31); Bilirubin Total 0.2 mg/dL (0.0-1.0); Blood Urea Nitrogen 19 mg/dL (9-16); Carbon Dioxide 26 mmol/L (22-29); Chloride 105 mmol/L (96-108); Estimated Glomerular Filt Rate > 60; Glucose Random 98 mg/dL (60-115); Lipase 25 U/L (8-78); Potassium 4.1 mmol/L (3.3-5.1); Sodium 140 mmol/L (135-145); Total Protein 6.1 g/dL (6.5-8.0)
--- NOTE | 2022-10-31 20:10 | MHC.EDTECH ---
2000 rounding done ,vitals sign taken ,pt orthostatics vitals sign taken and ekg .
[2022-10-31 20:24] LABS: Troponin-I High Sensitivity < 2.7 ng/L (<3.5-17.0)
--- NOTE | 2022-10-31 20:26 | MHC.EDTECH ---
PT URINE COLLECTED AND SENT TO LAB .
[2022-10-31 20:28] LABS: Glucose, Whole Blood 101 mg/dL (60-115)
[2022-10-31 20:58] LABS: Appearance Urine Clear; Color Urine Yellow; Glucose Urine UA Negative (Negative); Leukocyte Esterase Urine Small (1+) (Negative); Nitrite Urine Negative (Negative); PH 7.5 (5.0-9.0); Specific Gravity - Urine 1.015 (1.005-1.025); UMIC TRIGGER UACC YES; Urine Blood Negative (Negative); Urine Ketones Negative (Negative); Urine Protein Negative (Neg-Trace)
[2022-10-31 21:24] LABS: Bacteria Urine None Seen (None Seen); Hyaline Casts Urine 0-2 /LPF (0-2); RBC Urine 0-2 /HPF (0-2); Squamous Epithelial Cell Urine 0-2 /HPF (0-2); UACC Culture Trigger YES; WBC Urine 0-5 /HPF (0-5)
[2022-10-31] MEDS: Ondansetron ODT 4 MG TAB.RAPDIS TRANSLINGU (21:35)
[2022-10-31 22:00] VITALS: BP 135/73; PULSE 62; RESP 15; TEMP 36.8; O2SAT 99
[2022-10-31 22:11] LABS: Erythrocyte Sedimentation Rate 5 MM/HR (0-20)
== END 2022-10-31 22:48 | disposition home or self-care (01) ==
PROVIDERS: Physician Assistant; Emergency Provider Emergency Medicine; PCP Internal Medicine
DX: I10 Essential (primary) hypertension (principal); R42 Dizziness and giddiness; R51.9 Headache, unspecified; H53.8 Other visual disturbances; F41.9 Anxiety disorder, unspecified; F32.A Depression, unspecified; Z79.899 Other long term (current) drug therapy
CPT/HCPCS: 36415; 71046; 80053; 81001; 82947; 83690; 83735; 84484; 85025; 85652; 87086; 93005; 99284; 99285

== ENCOUNTER 2024-06-06 13:13 | Emergency (ER) | payer BC, SELFPAY ==
[2024-06-06] VITALS (7 sets, daily range): BP systolic 149–168; BP diastolic 73–88; PULSE 60–140; RESP 14–16; TEMP 36.6–36.7; O2SAT 96–100; BMI 37.1
--- NOTE | ~2024-06-06 | XR_ITS ---
EXAMINATION: XR CHEST CLINICAL INFORMATION: CP COMPARISON: October 31, 2022. TECHNIQUE: Portable upright AP view of the chest was obtained. FINDINGS: The study is limited by portable technique and suboptimal inspiration. No acute infiltrate, effusion, or pneumothorax is seen. The cardiac silhouette appears normal in size. Aorta may be mildly uncoiled, raising the possibility of hypertension. Mild degenerative changes of the spine. XR/XR chest 1V IMPRESSION: No acute finding. Electronically signed by: Humphrey Amin MD 06/06/2024 04:53 PM EST
--- NOTE | 2024-06-06 13:39 | PC.NURSE ---
Pt comes to ED today via EMS after stopping at a Fire Station for help d/t complaints of chest pain, palpitations, and dizziness. 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 Per EMS, Pts initial HR was 140-150's. EMS placed 18g to RAC and administered 250mls and ASA 324 VSS are now stable. Pt is A&Ox3, afebrile. Skin is warm and dry Breaths and speech are unlabored. Pt reports 4/10 CP with some SOB.
--- NOTE | 2024-06-06 14:37 | ECG_ITS ---
Test Reason : PALPITATIONS Blood Pressure : / mmHG Vent. Rate : 070 BPM Atrial Rate : 070 BPM P-R Int : 158 ms QRS Dur : 082 ms QT Int : 424 ms P-R-T Axes : 051 015 019 degrees QTc Int : 457 ms Normal sinus rhythm Cannot rule out Anterior infarct , age undetermined Abnormal ECG When compared with ECG of 31-OCT-2022 20:03, No significant change was found Referred By: Mikey Sierra Electronically Signed By:CHAO GEORGES
[2024-06-06 15:04] LABS: MANUAL DIFF FLAG NO
[2024-06-06 15:09] LABS: Appearance Urine Clear; Color Urine Yellow; Glucose Urine UA Negative (Negative); Leukocyte Esterase Urine Negative (Negative); Nitrite Urine Negative (Negative); PH 7.5 (5.0-9.0); Specific Gravity - Urine 1.015 (1.005-1.025); Urine Blood Negative (Negative); Urine Ketones Negative (Negative); Urine Protein Negative (Neg-Trace)
[2024-06-06 15:15] LABS: Basophils Absolute Auto 0.1 X10*3/uL (0.0-0.2); Basophils Percent Auto 0.6 % (0-2); Eosinophils Absolute Auto 0.1 X10*3/uL (0.0-0.4); Eosinophils Percent Auto 0.8 % (0-4); Hematocrit 40.1 % (37.0-47.0); Hemoglobin 13.4 g/dl (12.0-16.0); Imm Gran Abs Auto 0.07 X10*3/uL (0.00-0.03); Imm Gran Pct Auto 0.8 % (0.0-0.4); Lymphocytes Absolute Auto 1.7 X10*3/uL (1.2-4.9); Lymphocytes Percent Auto 19.1 % (20-40); Mean Corpuscular HGB Conc 33.4 g/dl (31.0-35.0); Mean Corpuscular Hemoglobin 29.4 pg (27.0-33.0); Mean Corpuscular Volume 87.9 fL (80.0-98.0); Mean Platelet Volume 10.1 fL (9.4-12.3); Monocytes Absolute Auto 0.6 X10*3/uL (0.1-1.2); Monocytes Percent Auto 6.4 % (2-11); Neutrophils Absolute Auto 6.5 x10*3/uL (2.0-8.3); Neutrophils Percent Auto 72.3 % (45-73); Platelet Count 219 X10*3/uL (160-400); Red Blood Count 4.56 X10*6/uL (4.20-5.50); Red Cell Distribution Width 12.8 % (11.0-16.0); White Blood Count 8.9 X10*3/uL (4.8-10.8)
[2024-06-06 15:25] LABS: B Type Natriuretic Peptide 32 pg/mL (<100)
[2024-06-06 15:27] LABS: Alanine Aminotransferase 11 U/L (0-31); Albumin Level 3.8 g/dL (3.5-5.0); Alkaline Phosphatase 95 U/L (39-117); Anion Gap 11 (12-20); Aspartate Amino Transferase 19 U/L (5-31); Bilirubin Direct 0.1 mg/dL (0.0-0.5); Bilirubin Total 0.3 mg/dL (0.0-1.0); Blood Urea Nitrogen 16 mg/dL (9-16); Calcium 8.7 mg/dL (8.4-10.2); Carbon Dioxide 25 mmol/L (22-29); Chloride 108 mmol/L (96-108); Estimated Glomerular Filt Rate > 60; Glucose Random 90 mg/dL (60-115); Lipase 24 U/L (8-78); Potassium 3.5 mmol/L (3.3-5.1); Sodium 140 mmol/L (135-145); Total Protein 6.3 g/dL (6.5-8.0); Troponin-I High Sensitivity 2.7 ng/L (<3.5-17.0)
[2024-06-06 15:32] LABS: D Dimer High Sensitivity < 150 NG/ML
[2024-06-06 15:46] LABS: Thyroid Stimulating Hormone 1.79 uIU/mL (0.32-4.0)
--- NOTE | 2024-06-06 16:13 | ED.CHESTPAIN ---
HPI - Chest Pain General Chief Complaint: Chest Pain Stated Complaint: CP/PALPITATIONS,HR 140, NOW HR 90-100 PER EMS Time Seen by Provider: 06/06/24 14:36 Source: patient Mode of arrival: EMS Limitations: no limitations History of Present Illness ED Provider: Jossie Marie NP HPI narrative: patient is a 63-year-old female with past medical history of vertigo, depression, anxiety, hypertension, paroxysmal atrial fibrillation who presents emergency department for evaluation. She reports that she was feeling palpitations, intermittent substernal chest pain, and dizziness with tachycardia. She attempted to drive herself to the emergency department but felt she could not make it that far and currently stopped up higher station. Reports at that time her heart rate was found to be in the 140s. She was given IV fluids by EMS, and by her arrival to the emergency department for head drop to the 70s and she denied any further symptoms. She was triaged to the waiting room. At the time of my evaluation she denies any palpitations. She states over the past 3 or 4 months he has been experiencing intermittent dizziness lightheadedness and palpitations. She is awaiting an appointment with her mandate retail service merchandiser in June. she does additionally note that she was started on fluoxetine 3 nights ago. She reports that she was diagnosed with atrial fibrillation approximately 1 year ago. She follows with tipple oiler Dr. Moreira, at [facility] as well as an mandate retail service merchandiser. Reports that at the point of initial diagnosis she was on diltiazem for approximately 1 month taking it daily, she had Holter monitor testing performed she was ultimately taken off of it and was only using it If symptomatic. She was given metoprolol prescription approximately 6 weeks ago, which she was using intermittently when she had feelings of palpitations or symptoms concerning for atrial fibrillation, but states that this was discontinued as she was experiencing bradycardia down to the 40s. Reports over the past month she an echo as well as a stress test both of which have been normal. Related Data Previous Rx's ?Medication ?Instructions ?Recorded levofloxacin 750 mg tablet 750 mg PO DAILY 7 days #7 tabs 09/27/20 lisinopril 10 mg tablet 10 mg PO DAILY hypertension #30 09/27/20 tabs epinephrine 0.3 mg/0.3 mL 0.3 mg (0.3 mL) IM Q20M PRN 02/09/22 injection, auto-injector anaphylaxis #2 ea famotidine 20 mg tablet (Pepcid) 20 mg PO BID 10 days #20 tabs 02/09/22 hydroxyzine HCl 25 mg tablet 25 mg PO TID PRN itching 7 days 02/09/22 #21 tabs ondansetron 4 mg disintegrating 4 mg PO Q8H PRN nausea and 10/31/22 tablet vomiting #10 tabs Allergies Allergy/AdvReac Type Severity Reaction Status Date / Time eggplant [EGGPLANT] Allergy Mild HIVES Verified 06/06/24 13:28 lisinopril Allergy Hives Verified 06/06/24 13:28 oxycodone [From PERCOCET] AdvReac Mild NAUSEA & Verified 06/06/24 13:28 VOMITING sulfamethoxazole AdvReac Swelling Verified 06/06/24 13:28 [From Bactrim] trimethoprim [From Bactrim] AdvReac Swelling Verified 06/06/24 13:28 Review of Systems Review of Systems: Yes all other systems are reviewed and are negative [facility] Past Medical History Attestation statement: The following information was validated with the patient. Source: old records reviewed Social History Social History Alcohol intake: never Smoked in Last 30 Days: No Use of substances other than those prescribed or required for medical reasons: No Substance Use Type: Caffiene Advance Directives: Yes Advance Directives Information Provided: No Advance Directives on File: No Do you have a plan to hurt others: No Plan Physical Exam Vital Signs: Vital Signs: Last Vital Signs Temp 97.9 F 06/06/24 13:31 Pulse 66 06/06/24 18:19 Resp 16 06/06/24 18:19 BP 168/82 H 06/06/24 18:19 Pulse Ox 96 06/06/24 18:19 O2 Del Method Room Air 06/06/24 18:19 BMI result Body Mass Index 37.1 Appearance: Alert.?Oriented to person, place and time. No acute distress.?Normal affect. Eyes: Pupils equal, round and reactive to light.? ENT: Pharynx normal.?? Neck: Normal inspection.? Neck supple.??No JVD. CVS: Heart sounds normal. Normal heart rate and rhythm.? Pulses normal.?? Respiratory: No respiratory distress.? Lung sounds clear to auscultation bilaterally?? Abdomen: Soft and non-tender. Normoactive bowel sounds. No pulsatile mass.?? Skin: Skin warm and dry.? Normal skin color.? ?? Extremities: No lower extremity edema.? No calf ttp? Neuro: Moves all extremities spontaneously. Sensation intact bilaterally. CN II-XII intact. No focal neuro deficits. Ambulates with normal steady gait. Course Reevaluation(s) Reevaluation #1: CBC is without leukocytosis, anemia, or thrombocytopenia. No electrolyte derangement. No LEE. LFTs within normal range. BNP within normal range. TSH is normal. High sensitive troponin is negative x2, not consistent with ACS. symptoms at this time. Most consistent with episode of paroxysmal atrial fibrillation. Resolved at this time. Feel that she is otherwise stable for outpatient follow-up with cardiology/EP. Medical Decision Making Medical Decision Making MDM Narrative: Patient is a 63-year-old female with past medical history of vertigo, depression, anxiety, hypertension, paroxysmal atrial fibrillation who presents to the emergency department for evaluation with complaint Palpitations, intermittent chest pain an intermittent dizziness as per HPI.. No evidence of volume overload or shock on exam. EKG without signs of acute ischemia Revealing a normal sinus rhythm with ventricular rate of 70, QTC 457, no ST elevation or ST depression. Low suspicion for acute PE she is anticoagulated on Eliquis, lower suspicion for, pneumothorax, thoracic aortic dissection, cardiac effusion / tamponade. No recent trauma or injury, no tracheal deviation, unlikely tension pneumothorax. No recent URI symptoms to suggest viral illness, pneumonia, costochondritis. No abdominal tenderness upon palpation, negative Suazo sign, unlikely acute cholecystitis, choledocholithiasis, no fever or jaundice to suggest acute cholangitis, may possibly be biliary colic secondary to cholelithiasis. Denies associated acid reflux, no tenderness upon palpation over the epigastrium or left upper quadrant to suggest gastritis, no recent hematemesis history less likely to suggest PUD. Denies excessive alcohol consumption, history of diabetes, lower suspicion acute pancreatitis. HEART score: 3 /low risk. Will obtain CBC to evaluate for leukocytosis/ anemia, CMP and lipase to evaluate for abnormal electrolytes /abnormal renal function/ abnormal hepatic/biliary function, Chest x-ray to evaluate for consolidation/ infiltrate/ mass/ pulmonary congestion, ASA 324 mg was given pre-hospital. Differential Diagnosis Differential Diagnoses: The differential diagnosis associated with the presentation includes (See narrative above) Admission/Observation Consideration of admission/observation: Escalation of care including admission/observation considered (See narrative above and course narrative for further detail) Lab Data MDM Lab Attestation statement: I reviewed the patient's lab results. ( see course narrative) 06/06/24 14:51 06/06/24 14:51 Labs: Lab Results 06/06/24 06/06/24 Range/Units 14:51 18:15 WBC 8.9 (4.8-10.8) X10*3/uL RBC 4.56 (4.20-5.50) X10*6/uL Hgb 13.4 (12.0-16.0) g/dl Hct 40.1 (37.0-47.0) % MCV 87.9 (80.0-98.0) fL MCH 29.4 (27.0-33.0) pg MCHC 33.4 (31.0-35.0) g/dl RDW 12.8 (11.0-16.0) % Plt Count 219 (160-400) X10*3/uL MPV 10.1 (9.4-12.3) fL Immature Gran % (Auto) 0.8 H (0.0-0.4) % Neut % (Auto) 72.3 (45-73) % Lymph % (Auto) 19.1 L (20-40) % [place] % (Auto) 6.4 (2-11) % Eos % (Auto) 0.8 (0-4) % Baso % (Auto) 0.6 (0-2) % Lymph # (Auto) 1.7 (1.2-4.9) X10*3/uL [place] # (Auto) 0.6 (0.1-1.2) X10*3/uL Eos # (Auto) 0.1 (0.0-0.4) X10*3/uL Baso # (Auto) 0.1 (0.0-0.2) X10*3/uL Abs Immat Gran (auto) 0.07 H (0.00-0.03) X10*3/uL Absolute Neuts (auto) 6.5 (2.0-8.3) x10*3/uL Absolute Nucleated RBC 0.000 (0.0-0.012) X10*3/uL Nucleated RBC % (auto) 0.0 (0.0-0.2) /100WBC D-Dimer High Sensitivty < 150 NG/ML Sodium 140 (135-145) mmol/L Potassium 3.5 (3.3-5.1) mmol/L Chloride 108 (96-108) mmol/L Carbon Dioxide 25 (22-29) mmol/L Anion Gap 11 L (12-20) BUN 16 (9-16) mg/dL Creatinine 0.83 (0.5-1.4) mg/dL Estim Creat Clear Calc 74.0 Estimated GFR > 60 Random Glucose 90 (60-115) mg/dL Calcium 8.7 (8.4-10.2) mg/dL Total Bilirubin 0.3 (0.0-1.0) mg/dL Direct Bilirubin 0.1 (0.0-0.5) mg/dL AST 19 (5-31) U/L ALT 11 (0-31) U/L Alkaline Phosphatase 95 (39-117) U/L Troponin I High Sens 2.7 4.0 (<3.5-17.0) ng/L B-Natriuretic Peptide 32 (<100) pg/mL Total Protein 6.3 L (6.5-8.0) g/dL Albumin 3.8 (3.5-5.0) g/dL Lipase 24 (8-78) U/L TSH 1.79 (0.32-4.0) uIU/mL Urine Color Yellow Urine Appearance Clear Urine pH 7.5 (5.0-9.0) Ur Specific [place] 1.015 (1.005-1.025) Urine Protein Negative (Neg-Trace) mg/dL Urine Glucose (UA) Negative (Negative) mg/dL Urine Ketones Negative (Negative) mg/dL Urine Blood Negative (Negative) Urine Nitrite Negative (Negative) Ur Leukocyte Esterase Negative (Negative) Independent Interpretation I performed an independent interpretation of an: EKG ( see narrative above) and Plain X-Ray ( no infiltrate or consolidation) Radiology Impression Discussion of test interpretation with radiology: I have reviewed the radiologist's reading. Radiologist Impression: XR/XR chest 1V IMPRESSION: No acute finding. Discharge Plan Discharge Clinical Impression: Paroxysmal atrial fibrillation Patient Disposition: Home, Self-Care Instructions: A-fib (Atrial Fibrillation) (ED) Additional Instructions: EKG today does not show evidence of atrial fibrillation. Your cardiac enzymes / troponin were checked twice and both were normal. No evidence of a heart attack today that may have caused your symptoms. You were not found to be anemic. Your electrolytes were normal. A kidney functioning is warm well. Your symptoms sound most consistent with an episode of atrial fibrillation. It is recommended that you follow-up closely with your tipple oiler / mandate retail service merchandiser for further evaluation and treatment. You may return to the emergency department with any new or worsening symptoms or concerns. Prescriptions: No Action levofloxacin 750 mg tablet 750 mg PO DAILY 7 Days Qty: 7 0RF lisinopril 10 mg tablet 10 mg PO DAILY Qty: 30 0RF famotidine [Pepcid] 20 mg tablet 20 mg PO BID 10 Days Qty: 20 0RF hydroxyzine HCl 25 mg tablet 25 mg PO TID PRN (Reason: itching) 7 Days Qty: 21 0RF epinephrine 0.3 mg/0.3 mL auto-injector 0.3 mg IM Q20M PRN (Reason: anaphylaxis) Qty: 2 0RF Rx Instructions: for 2 doses ondansetron 4 mg tablet,disintegrating 4 mg PO Q8H PRN (Reason: nausea and vomiting) Qty: 10 0RF Referrals: Kahlil Sharpe MD [Primary Care Provider] - Print Language: Maldivian
== END 2024-06-06 20:29 | disposition home or self-care (01) ==
PROVIDERS: Emergency Medicine; Nurse Practitioner Family; Emergency Provider Emergency Medicine; PCP Internal Medicine
DX: R07.89 Other chest pain (principal); R00.2 Palpitations; R42 Dizziness and giddiness; I48.0 Paroxysmal atrial fibrillation; R00.1 Bradycardia, unspecified; R00.0 Tachycardia, unspecified; Z79.899 Other long term (current) drug therapy
CPT/HCPCS: 36415; 71045; 80048; 80076; 81003; 83690; 83880; 84443; 84484; 85025; 85379; 93005; 99285

== ENCOUNTER → 2024-06-06 14:37 | Outpatient (BNV) | payer BC, SELFPAY | PROVIDERS: Emergency Provider Emergency Medicine; PCP Internal Medicine; Visit Provider Internal Medicine | DX: R00.2 Palpitations (principal); R94.31 Abnormal electrocardiogram [ECG] [EKG] | CPT/HCPCS: 93010 ==